=== PATIENT | female | born 1945 | race Caucasian/White ===

== ENCOUNTER → 2017-11-20 11:10 | Outpatient (CLI) | payer MEDICARE, SELFPAY ==
[2017-11-20 12:46] LABS: Absolute Lymphocyte Count 1.61 X10^3/ul (0.83-4.51); Absolute Neutrophil Count 2.9 X10^3/uL (2.0-7.7); Basophil# 0.02 X10^3/uL; Basophil% 0.4 % (0-1); Eosinophil# 0.05 X10^3/uL; Hemoglobin 14.4 g/dl (12.0-15.0); Lymphocyte # 1.61 X10^3/ul (4.0); Lymphocyte % 32.2 % (19-41); Mean Corp Hgb Conc 34.3 g/gl (32-36); Mean Corpuscular Hgb 31.9 pg (27.0-32.0); Mean Corpuscular Volume 92.9 fL (81-99); Mean Platelet Vol. 12.2 fl (6.2-12.0); Neutrophil # 2.92 X10^3/uL (2.7-7.7); Neutrophil % 58.4 % (47-70); Platelet Count 255 K/mm3 (150-450); RBC Distribution Width CV 12.8 % (11.6-14.6); Red Blood Count 4.52 M/mm3 (4.2-5.4)
[2017-11-20 12:51] LABS: POSITIVE COUNT NO; POSITIVE DIFFERENTIAL NO; POSITIVE MORPHOLOGY NO
[2017-11-20 12:59] LABS: Vitamin D,25 Hydroxy 23.1 ng/mL (29.95-100.01)
[2017-11-20 13:12] LABS: ALB/GLOB Ratio 1.1 RATIO (0.9-2.4); AST(SGOT) 30 U/L (15-37); Alanine Aminotransfer ALT/SGPT 39 U/L (13-56); Albumin, Serum 4.7 g/dL (3.2-5.0); Alkaline Phosphatase 79 U/L (45-117); Anion Gap 10 (5-15); BUN 11 mg/dL (7-18); BUN/Creat Ratio 12.5 RATIO (10-20); Calcium,Total 9.4 mg/dL (8.5-10.1); Chloride 100 mmol/L (98-107); Creatinine, Serum 0.88 mg/dL (0.55-1.02); EST Glomerular Filtration Rate 67 mL/min (>60); Est Glom Filt Rate - Afr Amer 81 mL/min (>60); Globulin 4.1 g/dL (2.2-4.2); Glucose 94 mg/dL (74-106); Protein, Total 8.8 g/dL (6.4-8.2); Sodium Level 140 mmol/L (136-145); Thyroid Stim Hormone (TSH) 8.83 uIU/mL (0.358-3.74)
[2017-11-21 08:12] LABS: Hep C Antibodies <0.1 s/co ratio (0.0-0.9)
== END ==
PROVIDERS: Family Provider Family Medicine Geriatric Medicine; PCP Family Medicine Geriatric Medicine; Visit Provider Family Medicine Geriatric Medicine
DX: I10 Essential (primary) hypertension (principal); E55.9 Vitamin D deficiency, unspecified; Z13.89 Encounter for screening for other disorder
CPT/HCPCS: 36415; 80053; 82306; 84443; 85025; 86803

== ENCOUNTER → 2018-01-07 07:05 | Outpatient (CLI) | payer MEDICARE, SELFPAY ==
[2018-01-07 08:24] LABS: Cholesterol 217 mg/dL (200); High Density Lipoprotein 115 mg/dL; T4 Free Direct 0.74 ng/dL (0.76-1.46); Triglycerides 64 mg/dL; Very Low Density Lipoprotein 13 mg/dL (5-40)
== END ==
PROVIDERS: Family Provider Internal Medicine; PCP Internal Medicine; Visit Provider Internal Medicine
DX: E03.9 Hypothyroidism, unspecified (principal)
CPT/HCPCS: 36415; 80061; 84439; 84443

== ENCOUNTER → 2018-01-09 14:16 | Outpatient (CLI) | payer MEDICARE, SELFPAY ==
--- NOTE | 2018-01-09 11:30 | LES_PTH ---
PATIENT: HERMINIA CORTES LOC: [facility] U#:[id number] AGE/SX: 79/F ROOM: RE01/09/[address]: Dr. Alejandro Rivera MD : 1945 BED: DIS: SPEC #: [id number] RECD: 01/09/18 14:01 STATUS: CHANDNI JOHNY #: [id number] AMANDA: 01/09/18 11:[address]: Alejandro Rivera DEPT: SURGICAL PATHOLOGY RECD BY: Ambika Hook ENTERED: 01/09/18 15:04 SP TYPE: Lesion OTHR DR: Dr. Quynh Stewart MD Tissues: Skin of eyelid, NOS Procedures: Surgery Specimen Level IV HEADER OPERATION: Removal of lesion RUL PRE-OP DIAGNOSIS: RUL lesion x8 years, now increasing in size, currently 3 x 2 mm TISSUE SUBMITTED: Lesion RUL MICROSCOPIC DIAGNOSIS Lesion of right upper eyelid, biopsy: Actinic keratosis, hyperkeratotic type, mildly inflamed. AM:fiorella 01/10/18 MICROSCOPIC DESCRIPTION Slides are reviewed. GROSS DESCRIPTION Received in fixative is one container labeled with the patient's name and designated right upper eyelid. The specimen consists of two irregular fragments of jensen tissue that in aggregate measure 0.7 x 0.5 x 0.2 cm. The specimen is totally submitted in one cassette. / AM:fiorella 01/09/18 TC:5 CPT: 17405
== END ==
PROVIDERS: Family Provider Internal Medicine; PCP Internal Medicine; Visit Provider Ophthalmology
DX: L57.0 Actinic keratosis (principal)
CPT/HCPCS: 88305

== ENCOUNTER → 2018-04-10 10:30 | Outpatient (CLI) | payer MEDICARE, SELFPAY ==
[2017-12-20 11:43] VITALS: BMI 21.9
--- NOTE | 2018-04-10 10:32 | RAD_ITS ---
STUDY: X-RAY - RIGHT SHOULDER REASON FOR EXAM: Pain. TECHNIQUE: 3 view(s) of the shoulder. COMPARISON: None. FINDINGS: Normal glenohumeral articulation. 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 Normal acromion. Normal humeral head and visualized proximal humerus. The soft tissue structures are unremarkable. Normal visualized pulmonary apex. RAD/Shoulder min 2 Views IMPRESSION: Mild acromioclavicular arthrosis. Electronically Signed: Thomas Qureshi MD at 12:50 EST Tel , Service support ,
--- OUTSIDE RECORDS SUMMARY | 2018-06-05 12:35 | XMS RPT_ITS ---
:1945 Author Organization OHIP Support Name Relationship Address Phone DAVID CORTES Unavailable [address] + [place] [address] R Unavailable Unavailable Unavailable SEBASTIAN, DAVID Unavailable [address] [place] [address] DR + [place] [address] R Unavailable Unavailable Unavailable SEBASTIAN, DAVID Unavailable [facility] [address] + [place] [address] R Unavailable Unavailable Unavailable SEBASTIAN, DAVID Unavailable [address] [place] [address] + [place] [address] R Unavailable Unavailable Unavailable SEBASTIAN, DAVID Unavailable [facility] [address] + [place] [address] R Unavailable Unavailable Unavailable SEBASTIAN, DAVID Unavailable [facility] [address] + [place] [address] R Unavailable Unavailable Unavailable SEBASTAIN, DAVID Unavailable [facility] [address] + [place] [address] R Unavailable Unavailable Unavailable SEBASTIAN, DAVID Unavailable [facility] [address] + [place] [address] R Unavailable Unavailable Unavailable SEBASTIAN, DAVID Unavailable [facility] [address] + [place] [address] R Unavailable Unavailable Unavailable SEBASTIAN, DAVID Unavailable [address] + [place] [address] R Unavailable Unavailable Unavailable SEBASTIAN, DAVID Unavailable [address] + [place] [address] R Unavailable Unavailable Unavailable SEBASTIAN, DAVID Unavailable [facility] [address] + [place] [address] R Unavailable Unavailable Unavailable Care Team Providers Name Role Phone Joseph Guevara ELECTRIC G[employer] APPLIANCES DEMONSTRATOR-C Attending Unavailable Quynh Stewart Primary Care Unavailable Quynh Stewart Attending Unavailable Quynh Stewart Referring Unavailable Seth Handley Attending Unavailable Oleghe, Efewongbe Referring Unavailable Oleghe, Efewongbe Primary Care Unavailable Yunier, Erwin Chi Attending Unavailable Yunier, Rewin Chi Primary Care Unavailable Oleghe, Efewongbe Attending Unavailable Oleghe, Efewongbe Referring Unavailable Yunier, Erwin Chi Primary Care Unavailable Oleghe, Efewongbe Attending Unavailable Oleghe, Efewongbe Referring Unavailable Oleghe, Efewongbe Primary Care Unavailable Alejandro Rivera Attending Unavailable Oleghe, Efewongbe Primary Care Unavailable Alejandro Rivera Referring Unavailable Wayt, Huy Attending Unavailable Oleghe, Efewongbe Referring Unavailable Wayt, Hyu Attending Unavailable Wayt, Huy Referring Unavailable Oleghe, Efewongbe Primary Care Unavailable Wayt, Huy Attending Unavailable Wayt, Huy Referring Unavailable Oleghe, Efewongbe Primary Care Unavailable Oleghe, Efewongbe Attending Unavailable Oleghe, Efewongbe Referring Unavailable Oleghe, Efewongbe Primary Care Unavailable Oleghe, Efewongbe Attending Unavailable Oleghe, Efewongbe Referring Unavailable PROBLEMS PROBLEMS DATE TYPE CONDITION / CODE ATTENDING STATUS SOURCE 04/10/2018 Unknown M25.511 - Pain in Huy Soriano Active [place] right shoulder / Community M25.511(ICD-10) Hospital Repository 12/20/2017 Unknown E03.9 - Oleghe, Active [place] Hypothyroidism, [facility] unspecified / Hospital E03.9(ICD-10) Repository 12/20/2017 Unknown Z12.31 - Encounter Oleghe, Active [place] for screening [facility] mammogram for Hospital malignant neoplasm Repository of breast / Z12.31(ICD-10) 12/20/2017 Unknown Z78.0 - Oleghe, Active [place] Asymptomatic [facility] menopausal state / Hospital Z78.0(ICD-10) Repository 12/20/2017 Unknown Z12.11 - Encounter Oleghe, Active [place] for screening for [facility] malignant neoplasm Hospital of colon / Repository Z12.11(ICD-10) PROCEDURES PROCEDURES No Procedure Records FoundRESULTS RESULTS INTERNAL MEDICINE Observed: 04/22/2018 Status: F Source: [place] OFFICE VISIT 4:46 PM [facility] [place], [place] REPOSITORY [facility] [address] [place] [address] [place] [address] OFFICE VISIT Date of Service: 04/21/18 MR#: [id number] Acct: [id number] Name: HERMINIA CORTES Rep #: [id number] : 1945 Provider: Quynh Stewart MD Age/Sex: 72/F [place] [facility] Status: Signed Intake Vital Signs04/21/18 Height 5 ft 2 in Intake Visit Reasons: f/u 03/19/18 LM TF Chief Complaint: f/u BP and thyroid Is patient in pain?: No Allergies oxycodone Allergy (Verified 04/10/18 10:22) Unknown Medications blood pressure monitor kit See Dose Instructions .ROUTE .MEDSUPPLY #1 ea 05/14/17 [History Confirmed 07/10/17] amlodipine 5 mg tablet 5 mg PO QDAY #90 tab 12/20/17 [Rx Confirmed 12/20/17] levothyroxine 50 mcg tablet 50 mcg PO QDAY #90 tab 01/07/18 [Rx] Post menopausal: Yes PFSH Medical History Subclinical hypothyroidism (Acute) Hypertension (Chronic) Surgical History History of appendectomy (Acute) Family History Mother Hypertension Social History Smoking Status: Never smoker alcohol intake: current alcohol intake frequency: 0-2 drinks per day Alcohol type: wine substance use type: does not use what type of physical activity do you participate in: yoga frequency: daily HPI HPI Chief Complaint: f/u BP and thyroid Details: HERMINIA CORTES, is a 72yo F who presents to the office today for follow up of her chronic medical condition. She has no acute complaints at this time. Most recent thyroid function study with stable numbers however she states that she only recently increased her levothyroxine about a week ago. Blood pressure also significantly elevated. She states at home her blood pressure typically ranges in the 120s over 80. She also reports compliance with her medication. ROS Const Constitutional: No weight change, body ache, chills, fatigue, sleep problems, fever(s), change in appetite, snoring, weakness, frequent falls, headache(s) or excessive sweating Eyes Eyes: No change in vision, eye pain, light sensitivity or blurry vision ENT ENT: No headache(s), abnormal hearing, ear pain, tinnitus, nasal congestion, sore throat or neck pain Resp Respiratory: No snoring, cough, shortness of breath or wheezing Cardio Cardiology: No excessive sweating, chest pain at rest, chest pain with exertion, shortness of breath, dyspnea on exertion, palpitations, orthopnea or lightheadedness Gastro GI: No abdominal pain, change in bowel habits, constipation, diarrhea, vomiting, nausea/dyspepsia or cramping Genitourinary-Female: No burning urination, painful urination, urinary incontinence, urinary frequency, abnormal vaginal bleeding, pelvic pain or other Musc Musculoskeletal: No neck pain, abnormal walking, joint pain, back pain, limited range of motion, numbness or tingling Skin Skin: No redness, dry skin, itching, lesions, wounds or rash Neuro Neurology: No weakness, frequent falls, headache(s), abnormal hearing, abnormal walking, numbness, tingling, abnormal speech, dizziness or memory loss Psych Psychiatric: No change in appetite, No memory loss, No anxiety, No depression, No Thoughts of harming yourself/Others Endo Endocrine: No fatigue, excessive sweating, cold intolerance, increased thirst/drinking, heat intolerance, flushing or increased hunger Aller/Imm Allergy/Immunologic: No wheezing, itchy eyes, hives or seasonal allergy symptoms Wilbert/Lymp Hematologic/Lymphatic: No easy bleeding, easy bruising or enlarged lymph nodes Exam Const General: cooperative, no acute distress Orientation: alert, awake, oriented x3 [facility] Head: atraumatic, normocephalic, normal to inspection Ears: hearing grossly normal bilaterally Throat: postnasal drainage Other: Impacted cerumen left ear canal. Resp Effort AND Inspection: normal respiratory effort, able to speak in complete sentences Auscultation: Bilateral: Clear to Auscultation Cardio Rate: regular rate Rhythm: regular rhythm Heart Sounds: S1 normal, S2 normal GI Palpation: soft, no hepatosplenomegaly Neuro General: alert, awake, oriented x3, moves all extremities, CN's II-XI intact bilaterally Extrem General: no clubbing, cyanosis or edema Psych Appearance: grossly normal Mental Status: mental status grossly normal Affect: normal affect Assessment AND Plan 1. Hypertension I10 Plan Elevated blood pressure in office. Patient however states that her blood pressure at home is to be in the 120s. Repeat blood pressure done manually by me of 160/90 mmHg. I advised her to keep a blood pressure log and come in with her machine at her next visit. Also instructed to occasionally check her blood pressure at her local pharmacy and compare this with her machine. If her blood pressure is noted to remain elevated she was advised to call the office. Continue lifestyle and dietary modifications. 2. Hypothyroidism E03.9 Plan Thyroid function studies with stable numbers. Adjustments done to her levothyroxine however patient states that she only started taking her new dose about a week ago. No concerns for over or under correction. Continue 50 mcg of levothyroxine daily. Repeat thyroid function studies in 7 weeks. Orders Orders: 3. Impacted cerumen H61.20 Plan More than the left. She denies any problems hearing. OTC Debrox. Reassess at next visit. 4. Healthcare maintenance Z00.00 Plan Mammogram and bone density ordered. Refer to general surgery for screening colonoscopy. Will receive her flu shot at her pharmacy. This note was generated with [employer] dictation software. It may contain incorrect words, spelling, and punctuation that were not noted in checking the note before signing. Plan Detail Other Orders Orders: Referrals: Coding Level of Care Code Off vis,est,level 4 Diagnoses Hypertension I10 Hypothyroidism E03.9 Impacted cerumen H61.20 Healthcare maintenance Z00.00 04/22/18 1646 <Electronically signed by Quynh Stewart MD> Date Quynh Setwart MD Cosigner Signature: Date (if applicable) CC: THYROID STIM HORMONE Collected: 04/16/2018 Status: F Source: [place] (TSH) 6:53 AM [facility] [place], [place] REPOSITORY TYPE CODE TESTS RESULT OUT OF RANGE REFERENCE UNITS LAB L501.9520 0.358-3.74 uIU/mL High TSH 6.23 Performed By: #### L501.9520, L506.0400 #### [facility] [address] [place], [address] T4 FREE DIRECT Collected: 04/16/2018 Status: F Source: [place] 6:53 AM [facility] [place] [place] REPOSITORY TYPE CODE TESTS RESULT OUT OF RANGE REFERENCE UNITS LAB L506.0400 0.76-1.46 ng/dL Normal T4 FREE 0.80 DIRECT Performed By: #### L501.9520, L506.0400 #### [place] [facility] [address] [place], [address] ORTHOPEDIC VISIT Observed: 04/14/2018 Status: F Source: [place] REPORT 9:02 AM [facility] [place] [place] REPOSITORY [facility] [facility] [address] [place] [address] OFFICE VISIT Date of Service: 04/10/18 MR#: [id number] Acct: [id number] Name: HERMINIA CORTES Rep #: [id number] : 1945 Provider: ARY Soriano Age/Sex: 72/F Location: [facility] [place] Status: Signed Intake Intake Visit Reasons: RIGHT SHOULDER Is patient in pain?: Yes Allergies oxycodone Allergy (Verified 04/10/18 10:22) Unknown Medications blood pressure monitor kit See Dose Instructions .ROUTE .MEDSUPPLY #1 ea 05/14/17 [History Confirmed 07/10/17] amlodipine 5 mg tablet 5 mg PO QDAY #90 tab 12/20/17 [Rx Confirmed 12/20/17] levothyroxine 50 mcg tablet 50 mcg PO QDAY #90 tab 01/07/18 [Rx] PFSH Medical History Subclinical hypothyroidism (Acute) Hypertension (Chronic) Surgical History History of appendectomy (Acute) Family History Mother Hypertension Social History Smoking Status: Never smoker alcohol intake: current alcohol intake frequency: 0-2 drinks per day Alcohol type: wine substance use type: does not use what type of physical activity do you participate in: yoga frequency: daily HPI RIGHT SHOULDER: Details: HERMINIA CORTES is a 72 year old F here today for right shoulder pain. Patient notes that she has had right shoulder pain since December. She fell off a sling and jerked her shoulder. Patient has pain over her anterior shoulder. She has good shoulder range of motion although it is painful. She feels like she has muscle weakness. Patient states that she is very active and does yoga. Patient denies any xrays, injections, physical therapy or MRI. ROS Const Reports system reviewed and no additional complaints, except as docu Eyes Reports system reviewed and no additional complaints, except as docu ENT Reports system reviewed and no additional complaints, except as docu Card Reports system reviewed and no additional complaints, except as docu Resp Reports system reviewed and no additional complaints, except as docu GI Reports system reviewed and no additional complaints, except as docu Reports system reviewed and no additional complaints, except as docu Musc Reports joint pain, Reports limited joint movement, Reports muscle weakness Skin/Breast Reports system reviewed and no additional complaints, except as docu Neuro Yes system reviewed and no additional complaints, except as docu Psych Reports system reviewed and no additional complaints, except as docu Endo Reports system reviewed and no additional complaints, except as docu Ortho Exam Right Shoulder Skin/Wound: No ecchymosis Contralateral Normal: Yes Testing: Positive AROM-Forward Elevation 0-180, PROM-Forward Elevation 0-180, Neer's and AROM-External Rotation at side 0-60; negative Hawkin's, Speed's, TTP Biceps, TTP AC Joint, Apprehension Test or Drop Arm Internal Rotation: T12 SHOULDER: Patient has not had any noted abnormalities of the shoulder. She has no localized or generalized swelling of the shoulder. She has normal range of motion audible to the left shoulder today in office. She has some minor impingement signs. She has no evidence of any bicep involvement. Assessment AND Plan Problems 1. Impingement syndrome of right shoulder M75.41 Plan Obtained Xrays of patient's right shoulder. Personally reviewed Xrays. There is no obvious fracture, dislocation, or lucency noted. See chart for further details. Patient does not have any evident abnormalities on examination of the shoulder. There is no localized or generalized swelling or other bony abnormalities. today in the office patient has full range of motion of the right shoulder. She has pretty much full strength on the right side that is comparable to the left. She has some very minor impingement signs on the right side today. We discussed the anatomy and physiology of the shoulder as well as pathophysiology of rotator cuff impingement. We discussed her treatment options at this time which include doing nothing, PT, injection, or further imaging of the shoulder. After discussion patient does not wish to have a injection today at the same time would like to proceed with physical therapy. I did stress that if she continues to have pain during therapy that we can do an injection to help with pain while she goes through therapy. We will follow-up in 4-6 weeks after physical therapy to see how she is doing Orders Orders: Plan Detail Follow Up 6 Weeks Coding Level of Care Code Off vis,new,level 3 Diagnoses Impingement syndrome of right shoulder M75.41 04/14/18 0902 <Electronically signed by Huy BELL> Date Huy BELL Cosigner Signature: Date (if applicable) CC: SHOULDER MIN 2 VIEWS Observed: 04/10/2018 Status: F Source: [place] 10:32 AM [facility] [place] [place] REPOSITORY [facility] Imaging Services [address] [place] [id number] Shoulder min 2 Views MR#: [id number] Acct: [id number] Name: HERMINIA CORTES Rep #: [id number] : 1945 F 72 From: Thomas Qureshi MD PCP: Quynh Stewart MD Status: REG CLI Study: Shoulder min 2 Views Date of Exam: 04/10/18 Exam# [id number] Ordering Dr: Huy Soriano STUDY: X-RAY - RIGHT SHOULDER REASON FOR EXAM: Pain. TECHNIQUE: 3 view(s) of the shoulder. COMPARISON: None. FINDINGS: Normal glenohumeral articulation. 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 Normal acromion. Normal humeral head and visualized proximal humerus. The soft tissue structures are unremarkable. Normal visualized pulmonary apex. RAD/Shoulder min 2 Views IMPRESSION: Mild acromioclavicular arthrosis. Electronically Signed: Thomas Qureshi MD at 12:50 EST Tel , Service support , CC: RAY Soriano; Quynh Stewart MD Research Physiologist: Signed LESION (CHOOSE SITE) Observed: 01/09/2018 Status: F Source: [place] 11:30 AM [facility] [place] [place] REPOSITORY Patient: HERMINIA CORTES : 1945 (/) Acct Num: [id number] [facility] Num: [id number] Loc: LABSPEC Specimen: [id number] Received: 01/09/18 - 1401 Spec Type: Lesion TISSUES TISSUES: Skin of eyelid, NOS GROSS DESCRIPTION Received in fixative is one container labeled with the patient's name and designated right upper eyelid. The specimen consists of two irregular fragments of jensen tissue that in aggregate measure 0.7 x 0.5 x 0.2 cm. The specimen is totally submitted in one cassette. / AM:fiorella 01/09/18 TC:5 CPT: 47343 HEADER OPERATION: Removal of lesion RUL PRE-OP DIAGNOSIS: RUL lesion x8 years, now increasing in size, currently 3 x 2 mm TISSUE SUBMITTED: Lesion RUL MICROSCOPIC DESCRIPTION Slides are reviewed. MICROSCOPIC DIAGNOSIS Lesion of right upper eyelid, biopsy: Actinic keratosis, hyperkeratotic type, mildly inflamed. AM:fiorella 01/10/18 Signed Pastor Annia 01/10/18 <signature on file> Performed By: #### PLES #### [place] [facility] [address] [place], [address] LIPID PROFILE Collected: 01/07/2018 Status: F Source: [place] 7:10 AM [facility] [place] [place] REPOSITORY Order Comment: Comments: Fasting Comments: Fasting TYPE CODE TESTS RESULT OUT OF RANGE REFERENCE UNITS LAB L501.4900 200 mg/dL High CHOL 217 Result Comment: <200 mg/dL Desirable 200-240 mg/dL Borderline >240 mg/dL High Risk LAB L501.5000 mg/dL Normal TRIG 64 Result Comment: The drugs N-Acetylcysteine and Metamizole may falsely depress this assay. Serum Triglycerides Reference Interval Normal <150 mg/dL Borderline high 150 - 199 mg/dL High 200 - 499 mg/dL Very High > or = 500 mg/dL LAB L501.6400 mg/dL Normal HDL 115 Result Comment: The drugs N-Acetylcysteine and Metamizole may falsely depress this assay. Reference Range HDL <40 mg/dL Low HDL Cholesterol HDL >or= 60 mg/dL High HDL Cholesterol LAB L501.6500 0-130 mg/dL Normal LDL 89 LAB L501.6600 5-40 mg/dL Normal VLDL 13 Performed By: #### L500.4100, L501.9520, L506.0400 #### [facility] [address] [place], [place], [id number] THYROID STIM HORMONE Collected: 01/07/2018 Status: F Source: [place] (TSH) 7:10 AM [facility] [place] [place] REPOSITORY Order Comment: Comments: Fasting Comments: Fasting TYPE CODE TESTS RESULT OUT OF RANGE REFERENCE UNITS LAB L501.9520 0.358-3.74 uIU/mL High TSH 6.60 Performed By: #### L500.4100, L501.9520, L506.0400 #### [facility] [address] [place], [place], [address] T4 FREE DIRECT Collected: 01/07/2018 Status: F Source: [place] 7:10 AM [facility] [place] [place] REPOSITORY Order Comment: Comments: Fasting Comments: Fasting TYPE CODE TESTS RESULT OUT OF REFERENCE UNITS RANGE LAB L506.0400 0.76-1.46 ng/dL Low T4 FREE 0.74 DIRECT Performed By: #### L500.4100, L501.9520, L506.0400 #### [facility] [address] [place], [address] INTERNAL MEDICINE Observed: 12/20/2017 Status: F Source: [place] OFFICE VISIT 12:28 PM [facility] [address] [place] [address] OFFICE VISIT Date of Service: 12/20/17 MR#: [id number] Acct: [id number] Name: HERMINIA CORTES Rep #: [id number] : 1945 Provider: Quynh Stewart MD Age/Sex: 72/F Location: [facility] Status: Signed Intake Vital Signs12/20/17 Height 5 ft 2 in Intake Visit Reasons: f/u Chief Complaint: follow-up BP Is patient in pain?: No Allergies oxycodone Allergy (Verified 07/10/17 11:15) Unknown Medications blood pressure monitor kit See Dose Instructions .ROUTE .MEDSUPPLY #1 ea 05/14/17 [History Confirmed 07/10/17] amlodipine 5 mg tablet 5 mg PO QDAY #90 tab 12/20/17 [Rx Confirmed 12/20/17] levothyroxine 25 mcg tablet 25 mcg PO QDAY #90 tab 12/20/17 [Rx Confirmed 12/20/17] Post menopausal: Yes PFSH Medical History Subclinical hypothyroidism (Acute) Hypertension (Chronic) Surgical History History of appendectomy (Acute) Family History Mother Hypertension Social History Smoking Status: Never smoker alcohol intake: current alcohol intake frequency: 0-2 drinks per day Alcohol type: wine substance use type: does not use what type of physical activity do you participate in: yoga frequency: daily HPI HPI Chief Complaint: follow-up BP Details: HERMINIA CORTES, is a 72yo F who presents to the office today for follow-up of her chronic medical conditions. Blood pressure at this time is optimal. She however admits that she went of amlodipine and was noted to have significantly elevated blood pressure. She was seen by another physician and started on another set of medications which per patient she did not tolerate well. She currently is only on amlodipine at the moment. Repeat thyroid function was also noted to be elevated as compared to prior. She was started on levothyroxine. She denies constipation, heat or cold intolerance and easy fatigability. She does admit to compliance with her medications. ROS Const Constitutional: No weight change, body ache, chills, fatigue, sleep problems, fever(s), change in appetite, snoring, weakness, frequent falls, headache(s) or excessive sweating Eyes Eyes: No change in vision, eye pain, light sensitivity or blurry vision ENT ENT: No headache(s), abnormal hearing, ear pain, tinnitus, nasal congestion, sore throat or neck pain Resp Respiratory: No snoring, cough, shortness of breath or wheezing Cardio Cardiology: No excessive sweating, chest pain at rest, chest pain with exertion, shortness of breath, dyspnea on exertion, palpitations, orthopnea or lightheadedness Gastro GI: No abdominal pain, change in bowel habits, constipation, diarrhea, vomiting, nausea/dyspepsia or cramping Genitourinary-Female: No burning urination, painful urination, urinary incontinence, urinary frequency, abnormal vaginal bleeding, pelvic pain or other Musc Musculoskeletal: No neck pain, abnormal walking, joint pain, back pain, limited range of motion, numbness or tingling Skin Skin: No redness, dry skin, itching, lesions, wounds or rash Neuro Neurology: No weakness, frequent falls, headache(s), abnormal hearing, abnormal walking, numbness, tingling, abnormal speech, dizziness or memory loss Psych Psychiatric: No change in appetite, No memory loss, No anxiety, No depression, No Thoughts of harming yourself/Others Endo Endocrine: No fatigue, excessive sweating, cold intolerance, increased thirst/drinking, heat intolerance, flushing or increased hunger Aller/Imm Allergy/Immunologic: No wheezing, itchy eyes, hives or seasonal allergy symptoms Wilbert/Lymp Hematologic/Lymphatic: No easy bleeding, easy bruising or enlarged lymph nodes Exam Const General: cooperative, no acute distress Orientation: alert, awake, oriented x3 [facility] Head: atraumatic, normocephalic, normal to inspection Ears: hearing grossly normal bilaterally Resp Effort AND Inspection: normal respiratory effort, able to speak in complete sentences Auscultation: Bilateral: Clear to Auscultation Cardio Rate: regular rate Rhythm: regular rhythm Heart Sounds: S1 normal, S2 normal GI Palpation: soft, no hepatosplenomegaly Neuro General: alert, awake, oriented x3, moves all extremities, CN's II-XI intact bilaterally Extrem General: no clubbing, cyanosis or edema Psych Appearance: grossly normal Mental Status: mental status grossly normal Affect: normal affect Assessment AND Plan 1. Hypertension I10 Plan Optimally controlled. Continue current medication and lifestyle modification. Follow-up in 3 months. 2. Hypothyroidism E03.9 Plan Currently in Synthroid 25 mcg daily. Repeat thyroid function ordered. Continue current medication for now. Orders Orders: 3. Health care maintenance Z00.00 Plan Bone density, mammogram and referral to general surgery for screening colonoscopy given today. Readdress at next visit. This note was generated with Revionics dictation software. It may contain incorrect words, spelling, and punctuation that were not noted in checking the note before signing. Plan Detail Other Orders Orders: Referrals: Other Medications New: Refilled: Coding Level of Care Code Off vis,est,level 4 Diagnoses Hypertension I10 Hypothyroidism E03.9 Health care maintenance Z00.00 12/20/17 1228 <Electronically signed by Quynh Stewart MD> Date Quynh Stewart MD Cosigner Signature: Date (if applicable) CC: CBC W/DIFF, AUTOMATED Collected: 11/20/2017 Status: F Source: [place] 11:13 AM [facility] [place], [place] REPOSITORY TYPE CODE TESTS RESULT OUT OF RANGE REFERENCE UNITS LAB L100.1000 4.4-11.0 K/mm3 Normal WBC 5.0 LAB L100.1200 4.2-5.4 M/mm3 Normal RBC 4.52 LAB L100.1300 12.0-15.0 g/dl Normal HGB 14.4 LAB L100.1400 37-47 % Normal HCT 42.0 LAB L100.1500 81-99 fL Normal MCV 92.9 LAB L100.1600 27.0-32.0 pg Normal MCH 31.9 LAB L100.1700 32-36 g/gl Normal MCHC 34.3 LAB L100.1810 11.6-14.6 % Normal RDW CV 12.8 LAB L100.1820 35.1-43.9 fl Normal RDW SD 43.0 LAB L100.1900 150-450 K/mm3 Normal PLT 255 LAB L100.2000 6.2-12.0 fl High MPV 12.2 LAB L100.2100 47-70 % Normal NEUT% 58.4 LAB L100.2200 19-41 % Normal LY% 32.2 LAB L100.2300 0-10 % Normal MONO% 8.0 LAB L100.2400 0-5 % Normal EO% 1.0 LAB L100.2500 0-1 % Normal BASO% 0.4 LAB L100.2550 0.0-0.9 % Normal IM GRAN % 0.000 Result Comment: IG% - Immature Granulocytes (promyelocytes, myelocytes and metamyelocytes) > 1% indicates that a LEFT SHIFT is Present. LAB L100.2620 2.0-7.7 X10 3/uL Normal Absolute Neut 2.9 LAB L100.2720 0.83-4.51 X10 3/ul Normal Absolute Lymph 1.61 Performed By: #### L100.0100 #### [facility] [address] [place], [place], [address] VITAMIN D,25 HYDROXY Collected: 11/20/2017 Status: F Source: [place] 11:13 AM [facility] [place], [place] REPOSITORY TYPE CODE TESTS RESULT OUT OF REFERENCE UNITS RANGE LAB L506.1000 29.95-100.01 ng/mL Low Vitamin D 23.1 25-OH Result Comment: Vitamin D 25(OH) Status Range Deficiency <20 ng/mL (50nmol/L) Insuffciency 20 - 30 ng/mL (50 - 75 nmol/L) Sufficiency 30 - 100 ng/mL (75 - 250 nmol/L) Toxicity >100 ng/mL (>250 nmol/L) Performed By: #### L506.1000 #### [facility] [address] [facility] [place], [address] COMPREHENSIVE METABOLIC Collected: 11/20/2017 Status: F Source: [facility] 11:13 AM [facility] [place], [place] REPOSITORY TYPE CODE TESTS RESULT OUT OF RANGE REFERENCE UNITS LAB L501.0100 74-106 mg/dL Normal GLU 94 Result Comment: Please note revised GLUCOSE reference range effective 2017. LAB L501.1000 7-18 mg/dL Normal BUN 11 LAB L501.1100 0.55-1.02 mg/dL Normal CREAT,SERUM 0.88 Result Comment: The validity of the calculated GFR AND GFRAA in patients over 70 years has not been determined. Clinical correlation is essential. LAB L501.1110 >60 mL/min Normal EST GFR 67 Result Comment: Non- GFR Calc LAB L501.1115 >60 mL/min Normal EST GFR - AA 81 Result Comment: GFR Calc LAB L501.1300 10-20 RATIO Normal BUN/CRE 12.5 LAB L501.1500 6.4-8.2 g/dL High T PROT 8.8 LAB L501.1800 3.2-5.0 g/dL Normal ALB 4.7 LAB L501.1950 2.2-4.2 g/dL Normal GLOB 4.1 LAB L501.2000 0.9-2.4 RATIO Normal A/G 1.1 LAB L501.2200 8.5-10.1 mg/dL CA Normal 9.4 LAB L501.4100 15-37 U/L Normal AST 30 LAB L501.4305 45-117 U/L Normal ALK P 79 LAB L501.4405 13-56 U/L Normal ALT 39 LAB L501.4600 0.20-1.00 mg/dL T Normal BILI 0.60 LAB L501.5300 136-145 mmol/L NA Normal 140 LAB L501.5600 3.5-5.1 mmol/L K Normal 4.0 LAB L501.5900 98-107 mmol/L CL Normal 100 LAB L501.6100 21.0-32.0 mmol/L Normal CO2 30.0 LAB L501.6200 5-15 Normal GAP 10 Performed By: #### L500.4050, L501.9520 #### [facility] [address] [place], [place], [id number] THYROID STIM HORMONE Collected: 11/20/2017 Status: F Source: [place] (TSH) 11:13 AM [facility] [place], [place] REPOSITORY TYPE CODE TESTS RESULT OUT OF RANGE REFERENCE UNITS LAB L501.9520 0.358-3.74 uIU/mL High TSH 8.83 Performed By: #### L500.4050, L501.9520 #### [facility] [address] [place], [place], [address] HEPATITIS C ANTIBODIES Collected: 11/20/2017 Status: F Source: [place] 11:13 AM [facility] [place], [place] REPOSITORY TYPE CODE TESTS RESULT OUT OF RANGE REFERENCE UNITS LAB L3100.0650 0.0-0.9 s/co ratio Normal HEP C AB <0.1 Result Comment: Negative: < 0.8 Indeterminate: 0.8 - 0.9 Positive: > 0.9 The CDC recommends that a positive HCV antibody result be followed up with a HCV Nucleic Acid Amplification test (219752). Performed at: - [facility] [id number] Manager Educational: Yefri Alcaraz PhD, Phone: [phone] Performed By: #### L3100.0625 #### [facility] (refer to report for specific site) refer to report for address and phone number URGENT CARE VISIT Observed: 07/10/2017 Status: F Source: [place] REPORT 1:11 PM [facility] [place], [place] REPOSITORY [facility] [address] [place] [address] OFFICE VISIT Date of Service: 07/10/17 MR#: [id number] Acct: [id number] Name: HERMINIA CORTES Rep #: [id number] : 1945 Provider: Seth BELL Age/Sex: 72/F [place] [facility] Status: Signed Intake Vital Signs07/10/17 Height 5 ft 2 in Intake Visit Reasons: OD STYE Chief Complaint: Right upper eyelid erythema and swelling Is patient in pain?: Yes Allergies oxycodone Allergy (Verified 07/10/17 11:15) Unknown Medications blood pressure monitor kit See Dose Instructions .ROUTE .MEDSUPPLY #1 ea 05/14/17 [History Confirmed 07/10/17] amlodipine 5 mg tablet 5 mg PO QDAY #90 tab 05/15/17 [Rx Confirmed 07/10/17] doxycycline hyclate 100 mg capsule 100 mg PO BID 10 Days #20 cap 07/10/17 [Rx Confirmed 07/10/17] PFS Medical History Subclinical hypothyroidism (Acute) Hypertension (Chronic) Surgical History History of appendectomy (Acute) Family History Mother Hypertension Social History Smoking Status: Never smoker alcohol intake: current alcohol intake frequency: 0-2 drinks per day Alcohol type: wine substance use type: does not use what type of physical activity do you participate in: yoga frequency: daily HPI HPI Chief Complaint: Right upper eyelid erythema and swelling Details: HERMINIA CORTES, is a 72 F who presents to the office today for initial evaluation progressively worsening 3 day history of right upper eyelid erythema and swelling. Patient notes she has been using warm compresses to the same in the attempt to alleviate the symptoms unsuccessfully. She notes pain is aggravated to touch alleviated by essentially nothing. She notes no visual acuity changes. She notes no complaints fever, chills, sweats, rash. She notes no associated symptoms no alleviating or aggravating factors. ROS Const Constitutional: No excessive sweating, abnormal sleep pattern, chills, fever(s), night sweats or body ache Eyes Eyes: Positive for other (Right upper eyelid swelling and discomfort); no change in vision, discharge, dry eyes or eye pain ENT ENT: No abnormal hearing, ear pain, ear discharge, ear pressure, hearing loss, post nasal drip or sinus pressure Resp Respiratory: No cough or chest congestion Cardio Cardiology: No excessive sweating, chest pain at rest, chest pain with exertion, shortness of breath, dyspnea on exertion, irregular heart rhythm, generalized swelling or leg pain with exertion Gastro GI: No abdominal pain, change in stool character or change in bowel habits Musc Musculoskeletal: No joint pain, back pain or limited range of motion Skin Skin: No change in hair or sores Neuro Neurology: No abnormal hearing, abnormal speech or abnormal movements Psych Psychiatric: No abnormal sleep pattern Endo Endocrine: No excessive sweating, change in body appearance, cold intolerance or heat intolerance Aller/Imm Allergy/Immunologic: No food intolerance Wilbert/Lymp Hematologic/Lymphatic: No easy bruising Exam Const General: cooperative, healthy appearing, no acute distress, comfortable Nutritional Appearance: average body habitus Orientation: alert, awake, oriented x3 HENMT Head: normal to inspection Ears: hearing grossly normal bilaterally, external ears normal, TM's normal bilaterally, EAC's normal Nose: external nose normal, nares normal, septum normal, no nasal discharge Face and sinus: normal facial exam, sinuses nontender, face symmetric Mouth: tongue normal, lip normal, oropharynx normal, oral mucosae normal Teeth and gingiva: dentition normal, gingiva normal Throat: posterior oropharynx normal, tonsils normal, uvula midline Eyes General: appearance normal, both eyes and all related structures Neck Neck: normal visual inspection, full ROM, no lymphadenopathy, no meningeal signs, supple Neck mass: No Thyroid: thyroid normal Lymphatic: no lymphadenopathy noted Chest Chest palpation AND inspection: normal inspection of the chest Resp Effort AND Inspection: normal respiratory effort, able to speak in complete sentences, symmetric chest movement Auscultation: Bilateral: Clear to Auscultation Cardio Palpation: normal PMI Rate: regular rate Rhythm: regular rhythm Heart Sounds: S1 normal, S2 normal, no gallops, no murmurs, no rubs Pulses: radial pulses present GI Inspection: normal to inspection Palpation: soft, no hepatosplenomegaly Skin General: no rashes or lesions noted Neuro General: alert, awake, oriented x3, gait normal Cognition: normal cognition Speech: speech normal Gait: normal gait Motor: muscle tone normal throughout Sensory Exam: no sensory deficits noted Extrem General: normal to inspection Psych Appearance: grossly normal Mental Status: mental status grossly normal Mood: congruent mood Affect: normal affect Speech and Movement: speech and movement normal Attitude: cooperative Thought Process: normal Thought Content: normal Judgment: judgment good Assessment AND Plan Problems 1. Chalazion H00.19 Plan Doxycycline as prescribed today. Continue warm compresses with baby shampoo as instructed today. Since patient will be leaving out of state, recommend patient follow a local rn cardiac cath where she will be vacationing at her reevaluation within the next 2-5 days, sooner should symptoms worsen or any other concerns develop. Patient states knowledge and understanding all the above. This note was generated with CyberPatrolation software. It may contain incorrect words, spelling, and punctuation that were not noted in checking the note before signing. Medications New: Coding Level of Care Code Off vis,est,level 4 Diagnoses Chalazion H00.19 07/10/17 1311 <Electronically signed by Seth BELL> Date Seth Le Signature: Date (if applicable) CC: INTERNAL MEDICINE Observed: 05/17/2017 Status: F Source: [place] OFFICE VISIT 5:00 PM [facility] [address] [place] [address] OFFICE VISIT Date of Service: 05/15/17 MR#: [id number] Acct: [id number] Name: HERMINIA CORTES Rep #: [id number] : 1945 Provider: Quynh Stewart MD Age/Sex: 71/F Location: [facility] Status: Signed Intake Vital Signs05/15/17 Height 5 ft 2 in 05/15/17 Weight: 125 lb 05/15/17 Body Mass Index (BMI) 22.8 05/15/17 Blood Pressure 160/75 05/15/17 Blood Pressure Location Lt brachial Intake Visit Reasons: F/U Chief Complaint: f/u BP Is patient in pain?: No Allergies No Known Allergies Allergy (Verified 01/14/17 01:58) Medications blood pressure monitor kit See Dose Instructions .ROUTE .MEDSUPPLY #1 ea 05/14/17 [History Confirmed 05/14/17] amlodipine 5 mg tablet 5 mg PO QDAY #90 tab 05/15/17 [Rx Confirmed 05/15/17] PFSH Medical History Subclinical hypothyroidism (Acute) Hypertension (Chronic) Surgical History History of appendectomy (Acute) Family History Mother Hypertension Social History Smoking Status: Never smoker alcohol intake: current alcohol intake frequency: 0-2 drinks per day Alcohol type: wine substance use type: does not use what type of physical activity do you participate in: yoga frequency: daily HPI F/U: Chief Complaint: f/u BP Details: HERMINIA CORTES, is a 71yo F who presents to the office today for follow-up on hypertension. Blood pressure in office today is 160/75mmHg however blood pressure log at home shows very good control with the highest reading of 133 systolic. She has no other concerns regarding her blood pressure today. Repeat thyroid function studies with a TSH of 7 and and free T4 0.72. She denies any symptoms at this time suggestive of hypothyroidism. She denies cold intolerance, chest pain, leg swelling, or easy fatigability. ROS Const Constitutional: No weight change, body ache, chills, fatigue, sleep problems, fever(s), change in appetite, snoring, weakness, frequent falls, headache(s) or excessive sweating Eyes Eyes: No change in vision, eye pain, light sensitivity or blurry vision ENT ENT: No headache(s), abnormal hearing, ear pain, tinnitus, nasal congestion, sore throat or neck pain Resp Respiratory: No snoring, cough, shortness of breath or wheezing Cardio Cardiology: No excessive sweating, chest pain at rest, chest pain with exertion, shortness of breath, dyspnea on exertion, palpitations, orthopnea or lightheadedness Gastro GI: No abdominal pain, change in bowel habits, constipation, diarrhea, vomiting, nausea/dyspepsia or cramping Musc Musculoskeletal: No neck pain, abnormal walking, joint pain, back pain, limited range of motion, numbness or tingling Skin Skin: No redness, dry skin, itching, lesions, wounds or rash Neuro Neurology: No weakness, frequent falls, headache(s), abnormal hearing, abnormal walking, numbness, tingling, abnormal speech, dizziness or memory loss Psych Psychiatric: No change in appetite, No memory loss, No anxiety, No depression, No Thoughts of harming yourself/Others Endo Endocrine: No fatigue, excessive sweating, cold intolerance, increased thirst/drinking, heat intolerance, flushing or increased hunger Aller/Imm Allergy/Immunologic: No wheezing, itchy eyes, hives or seasonal allergy symptoms Wilbert/Lymp Hematologic/Lymphatic: No easy bleeding, easy bruising or enlarged lymph nodes Exam Const General: cooperative, healthy appearing, comfortable, no acute distress Orientation: awake, oriented x3, alert HENMT Ears: hearing grossly normal bilaterally Resp Effort AND Inspection: normal respiratory effort, able to speak in complete sentences Auscultation: Bilateral: Clear to Auscultation Cardio Rate: regular rate Rhythm: regular rhythm Heart Sounds: S1 normal, S2 normal Extrem General: no clubbing, cyanosis or edema Psych Mental Status: mental status grossly normal Affect: normal affect Assessment AND Plan 1. Hypertension I10 Plan Based on home log, good control. Blood pressure in the office is 160/75 mmHg. Possibly white coat syndrome. Continue Norvasc 5 mg daily. Continue lifestyle modification. Follow-up in 3 months. 2. Subclinical hypothyroidism E03.9 Plan No significant difference in thyroid function studies however mildly low free T4. No symptoms suggestive of significant hypothyroidism. Continue to monitor. Follow-up in 2 months with repeat thyroid function studies. This note was generated with CyberPatrolation software. It may contain incorrect words, spelling, and punctuation that were not noted in checking the note before signing. Plan is [employer] slow problems in his knee is stopped no Orders Orders: Plan Detail Other Medications New: Follow Up 2 Months Coding Level of Care Code Off vis,est,level 3 Diagnoses Hypertension I10 Subclinical hypothyroidism E03.9 05/17/17 1700 <Electronically signed by Quynh Stewart MD> Date Quynh Stewart MD Cosigner Signature: Date (if applicable) CC: THYROID STIM HORMONE Collected: 05/01/2017 Status: F Source: [place] (TSH) 7:46 AM [facility] [place], [place] REPOSITORY Order Comment: Order Date: 01/23/17 Order Info: [id number] - *TSH Comments: Reason: Order Info: [id number] - *T4 free Comments: Reason: TYPE CODE TESTS RESULT OUT OF RANGE REFERENCE UNITS LAB L501.9520 0.358-3.74 uIU/mL High TSH 7.15 Performed By: #### L501.9520 #### [place] [facility] [address] [place], [address] T4 FREE DIRECT Collected: 05/01/2017 Status: F Source: [place] 7:46 AM [facility] [place] [place] REPOSITORY Order Comment: Order Date: 01/23/17 Order Info: [id number] - *TSH Comments: Reason: Order Info: [id number] - *T4 free Comments: Reason: TYPE CODE TESTS RESULT OUT OF REFERENCE UNITS RANGE LAB L506.0400 0.76-1.46 ng/dL Low T4 FREE 0.72 DIRECT Performed By: #### L506.0400 #### [facility] [address] [place], [address] ALLERGIES ALLERGIES DATE TYPE / CODE NAME / CODE REACTION SEVERITY SOURCE 04/10/2018 Drug oxycodone/F00 Unknown Unknown [facility] Allergy/4160 [id number]([facility] 65088(SNOMED M) Repository CT) 01/14/[address] [facility] Allergy/4160 Allergies/F00 [facility] 96540(SNOMED 1033615(RXNOR Repository CT) M) ENCOUNTERS ENCOUNTERS ADMIT/DISCHARGE ACCOUNT ADMITTING ENCOUNTER LOCATION SOURCE NUMBER CLASS 04/21/2018/ [id number] Ambulatory BMSBuilding:B [place] [address] [place] Repository 04/16/2018 [id number] Ambulatory [place] 5 [facility] ing:LAB Repository 04/14/2018 [id number] Ambulatory [place] 2 [facility] ing:PT Repository 04/10/2018 [id number] Ambulatory [place] 8 [facility] ing:HPRAD Repository 04/10/2018/ [id number] Ambulatory BMSBuilding:B [place] [address] 7 [place].SMO [facility] Repository 01/09/2018 [id number] Ambulatory [place] 3 [facility] ing:LABSPEC Repository 01/07/2018 [id number] Ambulatory [place] 3 [facility] ing:LAB Repository 12/20/2017/ [id number] Ambulatory BMSBuilding:B [place] 8 0 [place].BIM [facility] Repository 11/20/2017 [id number] Ambulatory [place] 4 [facility] ing:POLAB3 Repository 07/10/2017/ [id number] Ambulatory BMSBuilding:B [place] 8 6 [place].NOW [facility] Repository 05/15/2017/ [id number] Ambulatory BMSBuilding:B [place] 8 5 [place].BIM [facility] Repository 05/01/2017 [id number] Ambulatory [place] 6 [facility] ing:LAB.FUTUR Repository E PAYERS PAYERS ENCOUNTER GUARANTOR PAYER SUBSCRIBER SOURCE 04/21/2018 BRIDGET Lu Primary [place] Lu [place] [id number] Insurance:SUMMA CARE MARIOLADOB: Community FOREST MEDICAREPolicy [id number] Number: Repository [address]Heq: 330 [id number] [phone] (HP) Date:6104-62-92ZI [address] [place] [address]ZF: 04/21/2018 Secondary NOT GIVENUNK [place] Insurance:SELF PAY [facility] Number: Effective Repository Date:2018-03-19 04/16/2018 BRIDGET Lu [place] [id number] Insurance:SUMMA CARE MARIOLADOB: Community FOREST MEDICAREPolicy [id number], [place] Number: Repository [address]Vxh: (330 [id number] [phone] (HP) Date:4187-87-02KT [address] [place] [address]AX: 04/16/2018 Secondary NOT GIVENUNK [place] Insurance:SELF PAY [facility] Number: Effective Repository Date:2018-04-16 04/14/2018 BRIDGET Lu [place] [id number] Insurance:SUMMA CARE MARIOLADOB: Community FOREST MEDICAREPolicy [id number], [place] Number: Repository [address]Vaf: 330 [id number] [phone] (HP) Date:4561-19-95YP [address], [place] [address]YD: 04/14/2018 Secondary NOT GIVENUNK [place] Insurance:SELF PAY [facility] Number: Effective Repository Date:2018-04-10 04/10/2018 BRIDGET Lu [place] [id number] Insurance:SUMMA CARE MARIOLADOB: Community FOREST MEDICAREPolicy [id number], [place] Number: Repository [address]Gem: 330 [id number] [phone] (HP) Date:5813-22-32RY [address] [place] [address]I: 04/10/2018 Secondary NOT GIVENUNK [place] Insurance:SELF PAY [facility] Hospital Number: Effective Repository Date:2018-04-10 04/10/2018 BRIDGET Lu [place] [id number] Insurance:SUMMA CARE MARIOLADOB: Community FOREST MEDICAREPolicy [id number], [place] Number: Repository [address]Yno: 330 [id number] [phone] (HP) Date:2257-98-74VX [address] [place] [address]RS: 04/10/2018 Secondary NOT GIVENUNK [place] Insurance:SELF PAY [facility] Number: Effective Repository Date:2018-04-10 01/09/2018 BRIDGET Lu [place] [id number] Insurance:SUMMA CARE MARIOLADOB: Community FOREST MEDICAREPolicy [id number], [place] Number: Repository [address]Nqr: 330 [id number] [phone] (HP) Date:8927-43-30FJ [address], [place] [address]ZI: 01/09/2018 Secondary NOT GIVENUNK [place] Insurance:SELF PAY [facility] Hospital Number: Effective Repository Date:2018-01-09 01/07/2018 BRIDGET Quinonezoster [id number] Insurance:SUMMA CARE MARIOLADOB: Community FOREST MEDICAREPolicy [id number], [place] Number: Repository [address]Ypn: 330 [id number] [phone] (HP) Date:1050-19-25PI [address] [address]TI: 01/07/2018 Secondary NOT GIVENUNK [place] Insurance:SELF PAY [facility] Number: Effective Repository Date:2018-01-07 12/20/2017 BRIDGET Lu Primary [place] [id number] Insurance:SUMMA CARE MARIOLADOB: Community FOREST MEDICAREPolicy [id number], [place] Number: Repository [address]Fkm: 330 [id number] [phone] (HP) Date:9954-36-78IY [address], [place] [address]CE: 12/20/2017 Secondary NOT GIVENUNK [place] Insurance:SELF PAY [facility] Number: Effective Repository Date:2017-11-29 11/20/2017 BRIDGET Lu [facility] [place] Quinonezoster [id number] Insurance:SUMMA CARE MARIOLADOB: Community FOREST MEDICAREPolicy [id number], [place] Number: Repository [address]Hsq: 330 [id number] [phone] () Date:8180-74-95IH [address], [place] [address]QH: 11/20/2017 Secondary NOT GIVENUNK [place] Insurance:SELF PAY [facility] Number: Effective Repository Date:2017-11-20 07/10/2017 BRIDGET Lu Primary [place] Quinonezoster [id number] Insurance:SUMMA CARE MARIOLADOB: Community FOREST MEDICAREPolicy [id number], [place] Number: Repository [address]Vap: 330 [id number] [phone] (HP) Date:2840-91-21SB [address] [place] [address]UR: 07/10/2017 Secondary NOT GIVENUNK [place] Insurance:SELF PAY [facility] Number: Effective Repository Date:2017-07-10 05/15/2017 BRIDGET Lu Primary [place] Quinonezoster [id number] Insurance:SUMMA CARE MARIOLADOB: Community FOREST MEDICAREPolicy [id number], [place] Number: Repository [id number]: 330 [id number] [phone] () Date:4614-15-73SC [address] [place] [address]QE: 05/15/2017 Secondary NOT GIVENUNK [place] Insurance:SELF PAY [facility] Number: Effective Repository Date:2017-05-08 05/01/2017 [id number] Insurance:SUMMA CARE MARICOVINGTONDOB: Community [place] MEDIC[id number] Number: Repository [address]Hvv: 330 [id number] [phone] () Date:4252-36-38GM [address], [place] [address]QN: 05/01/2017 Secondary NOT GIVENUNK [place] Insurance:SELF PAY [facility] Number: Effective Repository Date:2017-01-24
== END ==
PROVIDERS: Family Provider Internal Medicine; PCP Internal Medicine; Referring Provider Physician Assistant; Visit Provider Physician Assistant
DX: M25.511 Pain in right shoulder (principal)
CPT/HCPCS: 73030

== ENCOUNTER 2018-04-14 13:58 | Outpatient (RCR) | payer MEDICARE, SELFPAY | END 2018-04-14 19:00 | disposition home or self-care (01) | LOC: PT 13:58 | PROVIDERS: Family Provider Internal Medicine; PCP Internal Medicine; Referring Provider Physician Assistant; Visit Provider Physician Assistant | DX: M75.101 Unspecified rotator cuff tear or rupture of right shoulder, not specified as traumatic (principal); M75.21 Bicipital tendinitis, right shoulder ==

== ENCOUNTER → 2018-04-16 06:47 | Outpatient (CLI) | payer MEDICARE, SELFPAY ==
[2017-12-20 11:43] VITALS: BMI 21.9
[2018-04-16 08:06] LABS: Thyroid Stim Hormone (TSH) 6.23 uIU/mL (0.358-3.74)
== END ==
PROVIDERS: Family Provider Internal Medicine; PCP Internal Medicine; Referring Provider Internal Medicine; Visit Provider Internal Medicine
DX: E03.9 Hypothyroidism, unspecified (principal)
CPT/HCPCS: 36415; 84439; 84443

== ENCOUNTER → 2018-05-23 07:36 | Outpatient (CLI) | payer MEDICARE, SELFPAY ==
[2018-04-21 14:24] VITALS: BMI 23.0
[2018-05-23 08:50] LABS: T4 Free Direct 0.85 ng/dL (0.76-1.46); Thyroid Stim Hormone (TSH) 3.58 uIU/mL (0.358-3.74)
== END ==
PROVIDERS: Family Provider Internal Medicine; PCP Internal Medicine; Referring Provider Internal Medicine; Visit Provider Internal Medicine
DX: E03.9 Hypothyroidism, unspecified (principal)
CPT/HCPCS: 36415; 84439; 84443

== ENCOUNTER → 2018-11-07 06:06 | Outpatient (CLI) | payer MEDICARE, SELFPAY ==
[2018-10-14 13:50] VITALS: BMI 23.0
[2018-11-07 07:23] LABS: Absolute Neutrophil Count 1.4 X10^3/uL (2.0-7.7); Basophil# 0.02 X10^3/uL; Basophil% 0.5 % (0-1); Eosinophil# 0.15 X10^3/uL; Eosinophils% 3.7 % (0-5); Hematocrit 38.2 % (37-47); Hemoglobin 12.9 g/dl (12.0-15.0); Lymphocyte % 49.6 % (19-41); Mean Corp Hgb Conc 33.8 g/gl (32-36); Mean Corpuscular Hgb 30.9 pg (27.0-32.0); Mean Corpuscular Volume 91.6 fL (81-99); Mean Platelet Vol. 11.7 fl (6.2-12.0); Monocyte# 0.48 X10^3/uL; Monocyte% 11.9 % (0-10); Neutrophil # 1.38 X10^3/uL (2.7-7.7); Neutrophil % 34.3 % (47-70); Platelet Count 230 K/mm3 (150-450); RBC Distribution Width CV 13.6 % (11.6-14.6); RBC Distribution Width SD 45.2 fl (35.1-43.9); Red Blood Count 4.17 M/mm3 (4.2-5.4)
[2018-11-07 07:24] LABS: POSITIVE COUNT NO; POSITIVE DIFFERENTIAL NO; POSITIVE MORPHOLOGY NO
[2018-11-07 07:52] LABS: Anion Gap 6 (5-15); BUN 14 mg/dL (7-18); BUN/Creat Ratio 16.8 RATIO (10-20); Calcium,Total 8.8 mg/dL (8.5-10.1); Chloride 106 mmol/L (98-107); Creatinine, Serum 0.83 mg/dL (0.55-1.02); EST Glomerular Filtration Rate 71 mL/min (>60); Est Glom Filt Rate - Afr Amer 86 mL/min (>60); Glucose 86 mg/dL (74-106); Potassium 4.2 mmol/L (3.5-5.1); Sodium Level 142 mmol/L (136-145); Thyroid Stim Hormone (TSH) 1.03 uIU/mL (0.358-3.74)
== END ==
PROVIDERS: Family Provider Internal Medicine; PCP Internal Medicine; Referring Provider Internal Medicine; Visit Provider Internal Medicine
DX: E03.9 Hypothyroidism, unspecified (principal); I10 Essential (primary) hypertension
CPT/HCPCS: 36415; 80048; 84443; 85025

== ENCOUNTER → 2018-12-09 12:25 | Outpatient (CLI) | payer MEDICARE, SELFPAY ==
[2018-10-14 13:50] VITALS: BMI 23.0
--- NOTE | 2018-12-09 12:27 | BI_ITS ---
MAMMOGRAPHY - BILATERAL SCREENING REASON FOR EXAM: Female, 73 years old. Routine annual screening examination. PERTINENT HISTORY: Sister with breast cancer. TECHNIQUE: Digital bilateral breast saman (3D mammographic acquisition) in the CC and MLO projections. 2-D mediolateral oblique (MLO) and craniocaudad (CC) views of both breasts were obtained. CAD: Full Field Digital Mammography with Computer Added Detection was performed. COMPARISON: Comparison is made with prior abdomen examination dated August 23, 2008. FINDINGS: Breast Composition: The breasts are heterogeneously dense, which may obscure small masses. There are no dominant masses or suspicious calcifications. No other significant abnormalities are identified. BI/SCREENING MAMM (CAD), BILAT IMPRESSION: Stable bilateral screening mammogram. Yearly follow-up mammogram recommended. (A) ASSESSMENT CATEGORY: BIRADS Category 1: Negative. A letter regarding these results will be sent to the patient by the facility within 30 days. Approximately 10% of breast cancers are not detected by mammography. A normal mammogram should not delay biopsy of a clinically suspicious abnormality. [id number] Electronically Signed: Logan Eaton, at 10:30 EDT , Service support ,
--- NOTE | 2018-12-09 12:29 | BD_ITS ---
STUDY: DUAL ENERGY X-RAY ABSORPTIOMETRY / DXA REASON FOR EXAM: Female, 73 years old. The patient is postmenopausal. Loss of height. TECHNIQUE: Bone Mineral Density (BMD) measurements of lumbar spine and bilateral hips were obtained. COMPARISON: None. FINDINGS: Lumbar Spine (L1-L4): g/cm2 (0.868) / T-score (-2.5) / Z-score (-0.8) Findings are suggestive of osteopenia with a high fracture risk. Left Femur Total: g/cm2 (0.897) / T-score (-0.9) / Z-score (0.8) Left Femoral Neck: g/cm2 (0.917) / T-score (-0.9) / Z-score (1.0) Right Femur Total: g/cm2 (0.881) / T-score (-1.0) / Z-score (0.7) Right Femoral Neck: g/cm2 (0.868) / T-score (-1.2) / Z-score (0.7) BD/Dexa Bone Density Study IMPRESSION: The patient is considered osteopenic as outlined below according to World Richy Organization (WHO) criteria with a high fracture risk. Reference Information: The T-score is the number of standard deviations above or below the standard which is normal for young adults at their peak bone mineral density. The World Health Organization (WHO) interprets the T-scores as follows: Above -1 Normal bone density Between -1 and -2.5 Osteopenia Equal to / or below -2.5 Osteoporosis As a practical clinical guideline, osteopenia may be graded as follows: Mild -1 through -1.5 Moderate -1.6 through -2.0 Severe -2.1 through -2.4 The Z-score is the number of standard deviations above or below age-matched controls. A Z-score of less than -1.5 would be considered abnormal. References: 1. NIH Osteoporosis and Related Bone Diseases http://www.osteo.org 2. International Society for Clinical Densitometry http://www.iscd.org 3. National Osteoporosis Foundation http://www.nof.org Electronically Signed: Logan Eaton, at 15:17 EDT , Service support ,
== END ==
PROVIDERS: Family Provider Internal Medicine; PCP Internal Medicine; Referring Provider Internal Medicine; Visit Provider Internal Medicine
DX: Z78.0 Asymptomatic menopausal state (principal); Z12.31 Encounter for screening mammogram for malignant neoplasm of breast
CPT/HCPCS: 77067; 77080

== ENCOUNTER → 2019-06-16 07:04 | Outpatient (CLI) | payer MEDICARE, SELFPAY ==
[2018-10-14 13:50] VITALS: BMI 23.0
[2019-06-16 08:27] LABS: Thyroid Stim Hormone (TSH) 6.75 uIU/mL (0.358-3.74)
== END ==
PROVIDERS: PCP Family Medicine; Referring Provider Family Medicine; Visit Provider Family Medicine
DX: E03.9 Hypothyroidism, unspecified (principal)
CPT/HCPCS: 84443

== ENCOUNTER → 2019-11-19 10:53 | Outpatient (CLI) | payer MEDICARE, SELFPAY ==
[2018-10-14 13:50] VITALS: BMI 23.0
[2019-11-19 14:03] LABS: Thyroid Stim Hormone (TSH) 6.21 uIU/mL (0.358-3.74)
== END ==
PROVIDERS: PCP Family Medicine; Referring Provider Family Medicine; Visit Provider Family Medicine
DX: E03.9 Hypothyroidism, unspecified (principal)
CPT/HCPCS: 36415; 84443

== ENCOUNTER → 2020-05-09 07:14 | Outpatient (CLI) | payer MEDICARE, SELFPAY ==
[2018-10-14 13:50] VITALS: BMI 23.0
[2020-05-09 08:51] LABS: ALB/GLOB Ratio 1.1 RATIO (0.9-2.4); AST(SGOT) 30 U/L (15-37); Alanine Aminotransfer ALT/SGPT 34 U/L (13-56); Albumin, Serum 3.8 g/dL (3.2-5.0); Alkaline Phosphatase 90 U/L (45-117); Anion Gap 4 (5-15); BUN 13 mg/dL (7-18); Calcium,Total 8.9 mg/dL (8.5-10.1); Chloride 104 mmol/L (98-107); Cholesterol 209 mg/dL (200); Creatinine, Serum 0.81 mg/dL (0.55-1.02); EST Glomerular Filtration Rate 73 mL/min (>60); Est Glom Filt Rate - Afr Amer 88 mL/min (>60); Globulin 3.5 g/dL (2.2-4.2); Glucose 83 mg/dL (74-106); High Density Lipoprotein 122 mg/dL; Potassium 4.1 mmol/L (3.5-5.1); Protein, Total 7.3 g/dL (6.4-8.2); Sodium Level 139 mmol/L (136-145); Thyroid Stim Hormone (TSH) 7.53 uIU/mL (0.358-3.74); Triglycerides 43 mg/dL; Very Low Density Lipoprotein 9 mg/dL (5-40)
== END ==
LOC: LAB 07:15
PROVIDERS: PCP Family Medicine; Referring Provider Family Medicine; Visit Provider Family Medicine
DX: I10 Essential (primary) hypertension (principal); E03.9 Hypothyroidism, unspecified
CPT/HCPCS: 36415; 80053; 80061; 84443

== ENCOUNTER → 2020-10-24 14:31 | Outpatient (CLI) | payer MEDICARE, SELFPAY ==
[2018-10-14 13:50] VITALS: BMI 23.0
[2020-10-24 18:21] LABS: Thyroid Stim Hormone (TSH) 5.15 uIU/mL (0.358-3.74)
== END ==
PROVIDERS: PCP Family Medicine; Visit Provider Family Medicine
DX: E03.9 Hypothyroidism, unspecified (principal)
CPT/HCPCS: 36415; 84443

== ENCOUNTER → 2021-05-08 07:00 | Outpatient (CLI) | payer MEDICARE, SELFPAY ==
[2021-05-08 08:11] LABS: Anion Gap 5 (5-15); BUN 12 mg/dL (7-18); BUN/Creat Ratio 14.5 RATIO (10-20); Chloride 102 mmol/L (98-107); Cholesterol 207 mg/dL (200); Creatinine, Serum 0.83 mg/dL (0.55-1.02); EST Glomerular Filtration Rate 71 mL/min (>60); Est Glom Filt Rate - Afr Amer 86 mL/min (>60); Free T3 2.1 pg/mL (2.18-3.98); Glucose 97 mg/dL (74-106); High Density Lipoprotein 125 mg/dL; Potassium 3.7 mmol/L (3.5-5.1); Sodium Level 138 mmol/L (136-145); T4 Free Direct 0.81 ng/dL (0.76-1.46); Triglycerides 61 mg/dL; Very Low Density Lipoprotein 12 mg/dL (5-40)
== END ==
PROVIDERS: PCP Family Medicine; Referring Provider Family Medicine; Visit Provider Family Medicine
DX: I10 Essential (primary) hypertension (principal); E03.9 Hypothyroidism, unspecified
CPT/HCPCS: 36415; 80048; 80061; 84439; 84443; 84481

== ENCOUNTER 2021-08-14 10:39 | Outpatient (CLI) | payer MEDICARE, SELFPAY ==
[2021-08-14 12:32] LABS: Thyroid Stim Hormone (TSH) 0.99 uIU/mL (0.358-3.74)
== END 2021-08-14 23:59 | disposition home or self-care (01) ==
PROVIDERS: PCP Family Medicine; Visit Provider Family Medicine
DX: E03.9 Hypothyroidism, unspecified (principal)
CPT/HCPCS: 36415; 84443

== ENCOUNTER → 2021-09-18 | Outpatient (CLI) | payer MEDICARE, SELFPAY ==
--- NOTE | 2021-09-18 14:06 | BI_ITS ---
MAMMOGRAPHY - BILATERAL SCREENING REASON FOR EXAM: Female, 76 years old. Routine annual screening examination. PERTINENT HISTORY: Sister with breast cancer. TECHNIQUE: Digital bilateral breast yusuf (3D mammographic acquisition) in the CC and MLO projections. 2-D mediolateral oblique (MLO) and craniocaudad (CC) views of both breasts were obtained. CAD: Full Field Digital Mammography with Computer Added Detection was performed. COMPARISON: Comparison is made with prior study dated 12/09/2018. FINDINGS: Breast Composition: The breasts are heterogeneously dense, which may obscure small masses. There are no dominant masses or suspicious calcifications. No other significant abnormalities are identified. There has been no significant change since the prior study. BI/SCRN MAMM (CAD)W/YUSUF BILAT IMPRESSION: Stable bilateral screening mammogram. Yearly follow-up mammogram recommended. (A) ASSESSMENT CATEGORY: BIRADS Category 1: Negative. A letter regarding these results will be sent to the patient by the facility within 30 days. Approximately 10% of breast cancers are not detected by mammography. A normal mammogram should not delay biopsy of a clinically suspicious abnormality. [id number] Electronically Signed: Logan Eaton MD at 15:25 EDT ,
== END | disposition home or self-care (01) ==
LOC: OPBI 14:04
PROVIDERS: PCP Family Medicine; Visit Provider Family Medicine
DX: Z12.31 Encounter for screening mammogram for malignant neoplasm of breast (principal); Z80.3 Family history of malignant neoplasm of breast
CPT/HCPCS: 77063; 77067

== ENCOUNTER → 2022-05-29 | Outpatient (CLI) | payer MEDICARE, SELFPAY ==
[2022-05-29 08:05] LABS: Microalbumin,Random Urine < 5.0 mg/L (NO RANGE EST.)
[2022-05-29 08:16] LABS: ALB/GLOB Ratio 1.1 RATIO (0.9-2.4); AST(SGOT) 18 U/L (15-37); Alanine Aminotransfer ALT/SGPT 23 U/L (13-56); Albumin, Serum 3.7 g/dL (3.2-5.0); Alkaline Phosphatase 80 U/L (45-117); Anion Gap 5 (5-15); BUN 12 mg/dL (7-18); BUN/Creat Ratio 14.9 RATIO (10-20); Calcium,Total 8.9 mg/dL (8.5-10.1); Chloride 103 mmol/L (98-107); Cholesterol 217 mg/dL (200); Creatinine, Serum 0.81 mg/dL (0.55-1.02); EST Glomerular Filtration Rate 73 mL/min (>60); Est Glom Filt Rate - Afr Amer 89 mL/min (>60); Globulin 3.5 g/dL (2.2-4.2); Glucose 92 mg/dL (74-106); High Density Lipoprotein 127 mg/dL; Potassium 4.3 mmol/L (3.5-5.1); Protein, Total 7.2 g/dL (6.4-8.2); Sodium Level 138 mmol/L (136-145); Thyroid Stim Hormone (TSH) 3.24 uIU/mL (0.358-3.74); Triglycerides 53 mg/dL; Very Low Density Lipoprotein 11 mg/dL (5-40)
== END | disposition home or self-care (01) ==
LOC: LAB 07:03
PROVIDERS: PCP Family Medicine; Referring Provider Family Medicine; Visit Provider Family Medicine
DX: Z13.220 Encounter for screening for lipoid disorders (principal); I10 Essential (primary) hypertension; E03.9 Hypothyroidism, unspecified
CPT/HCPCS: 36415; 80053; 80061; 82043; 84443

== ENCOUNTER → 2022-08-16 | Outpatient (CLI) | payer MEDICARE, SELFPAY ==
[2022-08-16 16:04] LABS: T4 Free Direct 0.93 ng/dL (0.76-1.46); Thyroid Stim Hormone (TSH) 1.78 uIU/mL (0.358-3.74)
== END | disposition home or self-care (01) ==
LOC: MFPLAB 11:13
PROVIDERS: PCP Family Medicine; Referring Provider Family Medicine; Visit Provider Family Medicine
DX: E03.9 Hypothyroidism, unspecified (principal)
CPT/HCPCS: 36415; 84439; 84443

== ENCOUNTER → 2023-06-05 | Outpatient (CLI) | payer MEDICARE, SELFPAY ==
--- OUTSIDE RECORDS SUMMARY | 2023-06-05 07:02 | XMS RPT_ITS | CCD ---
Author Name Unknown Address [facility] [place] [id number] Organization [facility] Care Team Providers Care Miner Operator Name Role Phone Terry MARTINEZ, Quynh Junior Unavailable Joseph Walker Unavailable Unavailable Yvonne Nicole Unavailable Unavailable Wendi Bernal Unavailable Unavailable Tatyana Peterson Unavailable Unavailable Primary Care Provider Unavailabl e Allergies Allergy Classification Reported Allergen(s) Allergy Type Date of Onset Reaction(s) Facility (2 sources) oxyCODONE drug allergy 7 [facility] Work Phone: (1 source) oxyCODONE Drug Allergy 7 Other: See Comments [facility] Medications Current Medications Medication Drug Class(es) Dates Sig (Normalized) Sig (Original) valACYclovir 1000 mg oral tablet (1 source) Herpesvirus Nucleoside Analog DNA Polymerase Inhibitor, Herpes Simplex Virus Nucleoside Analog DNA Polymerase Inhibitor, Herpes Zoster Virus Nucleoside Analog DNA Polymerase Inhibitor Start: 07-28-2022 End: 08-04-2022 take 1 tablet by mouth three times daily valACYclovir (VALTREX) 1 gram Take 1 tablet by mouth three times daily for 7 days. 21 tablet 0 07/28/2022 08/04/2022 Active Completed/Discontinued Medications Medication Drug Class(es) Dates Sig (Normalized) Sig (Original) amLODIPine 5 mg oral tablet (8 sources) Dihydropyridine Calcium Channel Praveen Start: 04-28-2021 amLODIPine (NORVASC) 5 mg tablet Problems Active Problems Problem Classification Problem Date Documented Da te Episodic/Chronic Essential hypertension (9 sources) Hypertensive disorder; Translations: [Essential (primary) hypertension] 01-16-2017 Chronic Thyroid disorders (5 sources) Subclinical hypothyroidism; Translations: [Hypothyroidism, unspecified] Onset: 01-23-2017 01-23-2017 Chronic Unclassified (1 source) Procedure carried out on subject; Translations: [Encounter for screening for lipoid disorders] Onset: 01-21-2017 01-21-2017 Viral infection (1 source) Herpes zoster without complication; Translations: [Zoster without complications] Episodic Past or Other Problems Problem Classification Problem Date Documented Da te Episodic/Chronic Other screening for suspected conditions (not mental disorders or infectious disease) (13 sources) Encounter for screening for diabetes mellitus; Translations: [Encounter for screening for lipoid disorders] Onset: 01-21-2017 01-21-2017 Episodic Results Test Name Value Interpretation Reference Range Facil ity Vital Signs Date Time Vital Sign Value Performing Clinician Facility 07-28-2022 12:03-0400 Body temperature 97.59 [degF] Heydi Athy PA-C Work Phone: [facility] 07-28-2022 12:03-0400 Body weight 56.79 kg Heydi Athy PA-C Work Phone: [facility] 07-28-2022 12:03-0400 Diastolic blood pressure 68 mm[Hg] Heydi Athy PA-C Work Phone: [facility] 07-28-2022 12:03-0400 Heart rate 68 /min Heydi Athy PA-C Work Phone: [facility] 07-28-2022 12:03-0400 Respiratory rate 18 /min Heydi Athy PA-C Work Phone: [facility] 07-28-2022 12:03-0400 SaO2% (BldA) [Mass fraction] 97 % Heydi Athy PA-C Work Phone: [facility] 07-28-2022 12:03-0400 Systolic blood pressure 140 mm[Hg] Heydi Athy PA-C Work Phone: [facility] 02-04-2017 07:49-0400 BMI (Body Mass Index) 22.06 kg/m2 Quynh Stewart MD [facility] Work Phone: 02-04-2017 07:49-0400 Body Temperature 97.7 [degF] Quynh Stewart MD [facility] Work Phone: 02-04-2017 07:49-0400 BP Diastolic 84 mm[Hg] Quynh Stewart MD [facility] Work Phone: 02-04-2017 07:49-0400 BP Systolic 154 mm[Hg] Quynh Stewart MD [facility] Work Phone: 02-04-2017 07:49-0400 Height 157.48 cm Quynh Stewart MD [facility] Work Phone: 02-04-2017 07:49-0400 Pulse (Heart Rate) 52 /min Quynh [facility] Work Phone: 02-04-2017 07:49-0400 Respiratory Rate 16 /min Quynh Stewart MD [facility] Work Phone: 02-04-2017 07:49-0400 Weight 54.7 kg Quynh Stewart MD [facility] Work Phone: 01-21-2017 09:53-0400 BMI (Body Mass Index) 22.53 kg/m2 Quynh Stewart MD [facility] Work Phone: 01-21-2017 09:53-0400 Body Temperature 98 [degF] Quynh Stewart MD [facility] Work Phone: 01-21-2017 09:53-0400 BP Diastolic 90 mm[Hg] Quynh Stewart MD [facility] Work Phone: 01-21-2017 09:53-0400 BP Systolic 180 mm[Hg] Quynh Stewart MD [facility] Work Phone: 01-21-2017 09:53-0400 Height 157.48 cm Quynh Stewart MD [facility] Work Phone: 01-21-2017 09:53-0400 Pulse (Heart Rate) 57 /min Quynh [facility] Work Phone: 01-21-2017 09:53-0400 Respiratory Rate 14 /min Quynh Stewart MD [facility] Work Phone: 01-21-2017 09:53-0400 Weight 55.88 kg Quynh Stewart MD [facility] Work Phone: Encounters Encounter Date Encounter Type Care Provider Facility Start: 07-28-2022 End: 07-28-2022 Patient encounter procedure Heydi Ector Lu PA-C Work Phone: [facility] Procedures Date Procedure Procedure Detail Performing Clinician Start: 01-21-2017 End: 01-23-2017 *CMP Complete Metabolic Panel Quynh Stewart MD Work Phone: Start: 01-21-2017 End: 01-25-2017 Electrocardiogram Quynh Laboy Work Phone: Start: 01-21-2017 End: 01-21-2017 Follow Up Appt 2 weeks Quynh steele MD Work Phone: Start: 01-21-2017 End: 01-23-2017 HbA1c Quynh Laboy Work Phone: Start: 01-21-2017 End: 01-23-2017 Lipid panel [AGGREGATE] Quynh murrell MD Work Phone: Start: 01-21-2017 End: 01-23-2017 Thyroid stimulating hormone (TSH) Quynh Stewart MD Work Phone: Start: 01-21-2017 End: 01-23-2017 Thyroxine (T4) free Quynh Laboy Work Phone: Plan of Treatment Date Care Activity Detail Author Start: 05-13-2022 ADVANCE DIRECTIVE DISCUSSION ADVANCE DIRECTIVE DISCUSSION [facility] Start: 05-13-2022 DEPRESSION ASSESSMENT DEPRESSION ASSESSMENT [facility] Start: 01-11-2022 Influenza vaccination INFLUENZA (#1) [facility] Start: 12-01-2021 COVID-19 VACCINE (5 - Booster for Pfizer series) COVID-19 VACCINE (5 - Booster for Pfizer series) [facility] Start: 04-24-2017 End: 01-23-2017 Thyroid stimulating hormone (TSH) *TSH [facility] Work Phone: Start: 04-24-2017 End: 01-23-2017 Thyroxine (T4) free *T4 free [facility] Work Phone: Start: 02-04-2017 End: 02-04-2017 Appointment Appointment [employer] [employer] Work Phone: Start: 02-04-2017 End: 02-04-2017 Follow Up Appt 2 months Follow Up Appt 2 months [facility] Work Phone: Start: 01-21-2017 End: 01-21-2017 Appointment Appointment [facility] Work Phone: Start: 01-21-2017 End: 01-23-2017 *CMP Complete Metabolic Panel *CMP Complete Metabolic Panel [facility] Work Phone: Start: 01-21-2017 End: 01-25-2017 *EKG (Done in Hospital) *EKG (Done in Hospital) [facility] Work Phone: Start: 01-21-2017 End: 01-21-2017 Follow Up Appt 2 weeks Follow Up Appt 2 weeks [facility] Work Phone: Start: 01-21-2017 End: 01-23-2017 HbA1c *HgA1C [employer] [facility] Work Phone: Start: 01-21-2017 End: 01-23-2017 Lipid panel [AGGREGATE] *Lipid Profile [facility] [employer] [facility] Work Phone: Start: 01-21-2017 End: 01-23-2017 Thyroid stimulating hormone (TSH) *TSH [facility] Work Phone: Start: 01-21-2017 End: 01-23-2017 Thyroxine (T4) free *T4 free [facility] Work Phone: Start: 2009 BONE DENSITY BONE DENSITY [facility] Start: 2009 PNEUMOCOCCAL: 65+ (1 - PCV) PNEUMOCOCCAL: 65+ (1 - PCV) [facility] Start: 05-14-2006 Urine microalbumin profile DTAP,TDAP,TD (1 - Tdap) [facility] Start: 1994 SHINGRIX VACCINE (1 of 2) SHINGRIX VACCINE (1 of 2) [facility] Start: 1989 DIABETES SCREEN DIABETES SCREEN [facility] Start: 1962 HEPATITIS C SCREENING HEPATITIS C SCREENING [facility] Immunizations Immunization Date Immunization Notes Care Provider Xander norton 05-13-2006 tetanus and diphther ia toxoids, adsorbed, preservative free, for adult use (2 Lf of tetanus toxoid and 2 Lf of diphtheria toxoid) Heydi Lu PA-C Work Phone: [facility] Work Phone: Payers Date Payer Category Payer Medicare [employer] MEDICARE [employer] GOLD PLUS [id number] 2018-Present [id number] [place] [id number] O [id number] Social History Date Type Detail Facility Start: 09-06-2014 Tobacco smoking stat [facility] Never smoked tobacco [facility] Start: 09-06-2014 Tobacco use and exposure Smoke less tobacco non-user [facility] Start: 07-28-2022 Alcohol intake Current drinke r of alcohol (finding) [facility] Start: 07-28-2022 [facility] Start: 1945 Sex Assigned At Not on file [facility] History of Present illness Narrative 07-28-2022 Heydi Lu PA-C - 07/28/2022 12:19 PM EDT Note Date & Type Note Facility 07-28-2022 History of Presen t illness Narrative Images from the original note were not included. This note was created using [employer]. Subjective Gauri Davies is a 77 year old female. HPI Presents with a rash on her left shoulder chest and back over the past 2 days. She states sometimes she will get some pain with it off and on. No itching. Denies any new lotions or soaps. No new medications. She was working in the garden morning but did not think she had gotten into anything. No fever cough or congestion. No sore throat. No vomiting or diarrhea. She thinks she did have chickenpox as a child. Has not had the vaccine. Review of Systems Constitutional: Negative. HENT: Negative. Respiratory: Negative. Cardiovascular: Negative. Gastrointestinal: Negative. Genitourinary: Negative. Musculoskeletal: Negative. Skin: Positive for rash. Neurological: Negative. All other systems reviewed and are negative. No past medical history on file. Current Outpatient Medications Medication Sig Dispense Refill amLODIPine (NORVASC) 5 mg tablet levothyroxine (SYNTHROID) 25 mcg tablet valACYclovir (VALTREX) 1 gram Take 1 tablet by mouth three times daily for 7 days. 21 tablet 0 No current facility-administered medications for this visit. No past surgical history on file. FAMILY HISTORY Problem Relation Age of Onset None Mother None Father Social History Tobacco Use Smoking status: Never Smokeless tobacco: Never Substance Use Topics Alcohol use: Yes Alcohol/week: 2.5 standard drinks Types: 1 Glasses of Wine (5oz) per week Drug use: No Objective BP 140/68 Pulse 68 Temp 36.4 C (97.6 F) (Tympanic) Resp 18 Wt 56.8 kg (125 lb 3.2 oz) SpO2 97% BMI 23.34 kg/m Physical Exam Vitals reviewed. Constitutional: Appearance: Normal appearance. HENT: Head: Normocephalic and atraumatic. Skin: General: Skin is warm and dry. Comments: Patient has erythematous vesicular rash in patches on her left shoulder, anterior left chest and lower neck as well as the posterior left upper back. Consistent with shingles. Neurological: Mental Status: She is alert. Assessment and Plan ASSESSMENT/PLAN: 1. Herpes zoster without complication - ICD9: 053.9, ICD10: B02.9 Patient is in the window for antiviral treatment. Kidney function from May 2022 reviewed and was normal. I will place her on Valtrex 3 times daily for 7 days. Recommended follow-up with PCP if symptoms are not improving over the next 1 to 2 weeks. Patient agreeable with plan. Contagiousness discussed as well. Heydi Lu PA-C documented in this encounter [facility] Instructions 07-28-2022 Patient Instructions Note Date & Type Note Facility 07-28-2022 Instructions Heydi Lu PA-C - 07/28/2022 12:15 PM EDT Herpes Zoster Infection (Shingles) Herpes zoster infection, also called shingles, is caused by the chickenpox virus. When a person has chickenpox, he or she is never completely cured of the virus. The virus lives at the base of nerves under the skin, and the body's immune system usually keeps the infection confined there. However, sometimes the virus becomes active again, and produces blisters. Pain is usually the first sign of shingles, followed by blisters most often located over one side of the chest and back, or on one side of the face or neck. However, shingles can occur almost anywhere on the body. The blisters of shingles usually heal in about 3 weeks. Several medications can hasten healing slightly if given within the first 2 to 3 days. These medications are acyclovir (Zovirax), famcyclovir (Famvir), and valacyclovir (Valtrex). Occasionally, the pain of shingles lasts after the skin has healed. This is called postherpetic neuralgia. People over about 60 years of age are at greatest risk of this. Postherpetic neuralgia can be treated with oral medications for pain, a cream called Zosqix, and tricyclic antidepressants such as amitriptyline (Elavil). These tricyclic antidepressants are not used for their antidepressant actions, but rather for their beneficial effects on healing inflamed nerves. Postherpetic neuralgia usually disappears within six months. documented in this encounter [facility] Progress note 05-12-2021 Note Date & Type Note Facility 05-12-2021 Note HNO ID: [id number] Author: Alejandro Herman APRN.MUSIC COPYIST Service: ? Author Type: Nurse Practitioner Type: Progress Notes Filed: 05/12/2021 9:14 AM Note Text: Subjective HPI Nontoxic-appearing female presents urgent care chief complaint COVID-19 exposure. Patient states tested positive for COVID-19. Presents today for COVID-19 testing. Patient denies any symptoms currently. No OTC medication use. Denies any pain. Denies history of COVID-19. Did receive receive 3 doses of COVID-19 vaccine. Denies any fever body aches chills cough chest pain shortness of breath pleuritic pain hemoptysis or change in bowel or bladder habits. Past medical history prescription medication use allergies reviewed. .Patient presents with: Follow Up: Pt reported Covid positive, denied SOB, chest pain History reviewed. No pertinent past medical history. History reviewed. No pertinent surgical history. ALLERGIES Patient has no known allergies. MEDICATIONS amLODIPine (NORVASC) 5 mg tablet levothyroxine (SYNTHROID) 25 mcg tablet FAMILY HISTORY Problem Relation Age of Onset - None Mother - None Father Social History Tobacco Use - Smoking status: Never Smoker - Smokeless tobacco: Never Used Substance Use Topics - Alcohol use: Yes Alcohol/week: 2.5 standard drinks Types: 1 Glasses of Wine (5oz) per week - Drug use: No BP 132/84 (BP Site: Left Arm, BP Position: Sitting) Pulse 88 Temp 36.8 ?C (98.2 ?F) (Temporal Artery) Resp 14 Wt 57.1 kg (125 lb 12.8 oz) BMI 23.45 kg/m? Review of Systems Constitutional: Negative for chills, fever and malaise/fatigue. HENT: Negative for congestion, ear discharge, ear pain, sinus pain and sore throat. Eyes: Negative for blurred vision, pain, discharge and redness. Respiratory: Negative for cough, hemoptysis, sputum production, shortness of breath, wheezing and stridor. Cardiovascular: Negative for chest pain. Gastrointestinal: Negative for abdominal pain, diarrhea, nausea and vomiting. Musculoskeletal: Negative for myalgias. Skin: Negative for itching and rash. Neurological: Negative for dizziness and headaches. Objective Physical Exam Constitutional: General: She is not in acute distress. Appearance: She is not diaphoretic. HENT: Head: Normocephalic. Mouth/Throat: Mouth: Mucous membranes are moist. Pharynx: Oropharynx is clear. No oropharyngeal exudate or posterior oropharyngeal erythema. Eyes: Conjunctiva/sclera: Conjunctivae normal. Pupils: Pupils are equal, round, and reactive to light. Cardiovascular: Rate and Rhythm: Normal rate and regular rhythm. Heart sounds: Normal heart sounds. Pulmonary: Effort: Pulmonary effort is normal. No tachypnea, accessory muscle usage or respiratory distress. Breath sounds: Normal breath sounds. No stridor. Abdominal: Palpations: Abdomen is soft. Tenderness: There is no abdominal tenderness. Musculoskeletal: Cervical back: Normal range of motion and neck supple. No rigidity or tenderness. Lymphadenopathy: Cervical: No cervical adenopathy. Skin: General: Skin is warm and dry. Neurological: Mental Status: She is alert and oriented to person, place, and time. ASSESSMENT/PLAN: 1. Exposure to COVID-19 virus - ICD9: V01.79, ICD10: Z20.822 - COVID WITH FLUA+B, ROUTINE COVID-19 test ordered results pending. Red flags for prompt reevaluation discussed. Will follow up with PCP if symptoms develop. Alejandro Herman APRN.[facility] Evaluation note Note Date & Type Note Facility documented in this encounter [facility] Summary Purpose Family History No Family History Records Found Advance Directives No Advanced Directives Records Found Additional Source Comments INFORMATION SOURCE (unrecogn ized section and content) Source Comments (unrecognize d section and content) In the event this informatio n is protected by the Federal Confidentiality of Alcohol and Drug Abuse Patient Records regulations: The Federal rules restrict any use of the information to criminally investigate or prosecute any alcohol or drug abuse patient.[facility] Reason for Visit (unrecogniz ed section and content) FOR RECORDS PERTAINING TO PATIENTS WHO ARE OR HAVE BEEN ENROLLED IN A CHEMICAL DEPENDENCY/SUBSTANCEABUSE PROGRAM, SOME INFORMATION MAY BE OMITTED. This clinical summary was aggregated from multiple sources. Caution should be exercised in using it in the provision of clinical care. This summary normalizes information from multiple sources, and as a consequence, information in this document may materially change the coding, format and clinical context of patient data. In addition, data may be omitted in some cases. CLINICAL DECISIONS SHOULD BE BASED ON THE PRIMARY CLINICAL RECORDS. [employer] [facility]. provides no warranty or guarantee of the accuracy or completeness of information in this document.
[2023-06-05 08:01] LABS: Anion Gap 1 (5-15); BUN 11 mg/dL (7-18); BUN/Creat Ratio 15.3 RATIO (10-20); Calcium,Total 9.2 mg/dL (8.5-10.1); Chloride 106 mmol/L (98-107); Cholesterol 210 mg/dL (200); Creatinine, Serum 0.72 mg/dL (0.55-1.02); EST Glomerular Filtration Rate 84 mL/min (>60); Est Glom Filt Rate - Afr Amer 101 mL/min (>60); Free T3 1.7 pg/mL (2.18-3.98); Glucose 94 mg/dL (74-106); High Density Lipoprotein 130 mg/dL; Potassium 3.7 mmol/L (3.5-5.1); Sodium Level 136 mmol/L (136-145); T4 Free Direct 0.86 ng/dL (0.76-1.46); Thyroid Stim Hormone (TSH) 3.96 uIU/mL (0.358-3.74); Triglycerides 52 mg/dL; Very Low Density Lipoprotein 10 mg/dL (5-40)
== END | disposition home or self-care (01) ==
LOC: LAB 06:57
PROVIDERS: PCP Family Medicine; Referring Provider Family Medicine; Visit Provider Family Medicine
DX: Z00.00 Encounter for general adult medical examination without abnormal findings (principal); E03.9 Hypothyroidism, unspecified
CPT/HCPCS: 36415; 80048; 80061; 84439; 84443; 84481

== ENCOUNTER → 2023-08-27 | Outpatient (CLI) | payer MEDICARE, SELFPAY ==
[2023-08-27 08:13] LABS: Free T3 2.4 pg/mL (2.18-3.98); Thyroid Stim Hormone (TSH) 0.14 uIU/mL (0.358-3.74)
== END | disposition home or self-care (01) ==
LOC: LAB 06:57
PROVIDERS: PCP Family Medicine; Referring Provider Family Medicine; Visit Provider Family Medicine
DX: E03.9 Hypothyroidism, unspecified (principal)
CPT/HCPCS: 36415; 84439; 84443; 84481

== ENCOUNTER → 2023-12-26 | Outpatient (CLI) | payer MEDICARE, SELFPAY ==
[2023-12-26 15:51] LABS: T4 Free Direct 1.23 ng/dL (0.76-1.46); Thyroid Stim Hormone (TSH) 0.102 uIU/mL (0.358-3.740)
== END | disposition home or self-care (01) ==
LOC: MFPLAB 11:27
PROVIDERS: Family Medicine; PCP Family Medicine; Referring Provider Family Medicine; Visit Provider Family Medicine
DX: E03.9 Hypothyroidism, unspecified (principal)
CPT/HCPCS: 36415; 84439; 84443

== ENCOUNTER → 2024-02-10 | Outpatient (CLI) | payer MEDICARE, SELFPAY ==
[2024-02-10 13:38] LABS: T4 Free Direct 0.94 ng/dL (0.76-1.46)
== END | disposition home or self-care (01) ==
LOC: MFPLAB 10:19
PROVIDERS: PCP Family Medicine; Visit Provider Family Medicine
DX: E03.9 Hypothyroidism, unspecified (principal)
CPT/HCPCS: 36415; 84439; 84443

== ENCOUNTER → 2024-08-19 | Outpatient (CLI) | payer MEDICARE, SELFPAY ==
[2024-08-19 07:35] LABS: ALB/GLOB Ratio 1.5 RATIO (0.9-2.4); AST(SGOT) 21 U/L (<=31); Alanine Aminotransfer ALT/SGPT 16 U/L (<=34); Albumin, Serum 4.3 g/dL (3.4-4.8); Alkaline Phosphatase 89 U/L (35-104); Anion Gap 9 (5-15); BUN 10 mg/dL (4-19); BUN/Creat Ratio 11.9 RATIO (10-20); Calcium,Total 9.5 mg/dL (7.6-11.0); Carbon Dioxide 27.5 mmol/L (21.0-32.0); Chloride 98 mmol/L (98-108); Cholesterol 212 mg/dL (<=200); EST Glomerular Filtration Rate 74 (>60); Free T3 2.2 pg/mL (2.18-3.98); Globulin 2.9 g/dL (2.2-4.2); Glucose 91 mg/dL (70-99); High Density Lipoprotein 126 mg/dL; Low Density Lipoprotein Calc. 74 mg/dL; Potassium 4.2 mmol/L (3.3-5.1); Protein, Total 7.2 g/dL (5.9-8.4); Sodium Level 135 mmol/L (133-145); Total Bilirubin 0.48 mg/dL (0.00-1.30); Triglycerides 58 mg/dL; Very Low Density Lipoprotein 12 mg/dL (5-40); cholesterol:hdl ratio screen 1.68
== END | disposition home or self-care (01) ==
LOC: LAB 06:41
PROVIDERS: PCP Family Medicine; Referring Provider Family Medicine; Visit Provider Family Medicine
DX: I10 Essential (primary) hypertension (principal); E03.9 Hypothyroidism, unspecified
CPT/HCPCS: 36415; 80053; 80061; 84439; 84443; 84481

== ENCOUNTER → 2024-12-17 | Outpatient (CLI) | payer MEDICARE, SELFPAY ==
--- NOTE | 2024-12-17 08:23 | BD_ITS ---
PROCEDURE: DEXA BONE DENSITY STUDY N/A REASON FOR EXAM: F, age 79 y/o . Postmenopausal. TECHNIQUE: DEXA BONE DENSITY STUDY COMPARISON: Prior study dated December 09, 2018. FINDINGS: BMD and T-SCORES Lumbar spine: 0.730 g/cm2, T-score -2.6 Levels: L1 through L4 Change from prior: Loss of 3.9%. Left femoral neck: 0.697 g/cm2, T-score -1.4 Femoral neck comparison data not recommended for monitoring change. Left total hip: 0.798 g/cm2, T-score -1.2 Change from prior: Loss of 4.3%. Right femoral neck: 0.702 g/cm2, T-score -1.3 Femoral neck comparison data not recommended for monitoring change. Right total hip: 0.775 g/cm2, T-score -1.4 Change from prior: Loss of 5.3%. The World Health Organization has defined the following categories based on bone density: Normal bone density: T-score equal to or greater than -1.0 Osteopenia: T-score between -1.0 and -2.5 Osteoporosis: T-score equal to or less than -2.5 The patient does meet the pharmacological treatment recommendations for prevention of osteoporosis. BD/Dexa Bone Density Study IMPRESSION: OSTEOPOROSIS. Recommend follow-up as clinically warranted. Reading Location: [id number]
== END | disposition home or self-care (01) ==
LOC: OPBD 08:22
PROVIDERS: PCP Family Medicine; Referring Provider Family Medicine; Visit Provider Family Medicine
DX: Z78.0 Asymptomatic menopausal state (principal)
CPT/HCPCS: 77080

== ENCOUNTER → 2025-03-04 | Outpatient (CLI) | payer MEDICARE, SELFPAY ==
[2025-03-04 08:40] LABS: AST(SGOT) 21 U/L (<=31); Alanine Aminotransfer ALT/SGPT 16 U/L (<=34); Albumin, Serum 4.5 g/dL (3.4-4.8); Alkaline Phosphatase 80 U/L (35-104); Anion Gap 8 (5-15); BUN 11 mg/dL (4-19); BUN/Creat Ratio 13.9 RATIO (10-20); Calcium,Total 9.6 mg/dL (7.6-11.0); Carbon Dioxide 27.5 mmol/L (21.0-32.0); Chloride 99 mmol/L (98-108); Cholesterol 211 mg/dL (<=200); Free T3 2.2 pg/mL (2.18-3.98); Globulin 3.2 g/dL (2.2-4.2); Glucose 91 mg/dL (70-99); Low Density Lipoprotein Calc. 79 mg/dL; Potassium 4.2 mmol/L (3.3-5.1); Triglycerides 46 mg/dL; Very Low Density Lipoprotein 9 mg/dL (5-40); cholesterol:hdl ratio screen 1.72
== END | disposition home or self-care (01) ==
PROVIDERS: PCP Family Medicine; Referring Provider Family Medicine; Visit Provider Family Medicine
DX: E03.9 Hypothyroidism, unspecified (principal); I10 Essential (primary) hypertension
CPT/HCPCS: 36415; 80053; 80061; 84439; 84443; 84481

== ENCOUNTER → 2025-04-27 | Outpatient (CLI) | payer MEDICARE, SELFPAY ==
--- NOTE | 2025-04-27 12:42 | ECHOD_ITS ---
Reason For Study Reason For Study: HTN Procedure This was a 2D Doppler, Color Flow transthoracic echocardiogram. Exam performed in department. Left Ventricle Normal LV size. Left ventricular systolic function is normal. The left ventricular ejection fraction is 65 %. No regional wall motion abnormalities noted. Right Ventricle Normal RV size. Normal systolic function. Atria Normal left atrium. Normal right atrium. Mitral Valve Normal mitral valve. Mild (1+) eccentric mitral valve insufficiency. Tricuspid Valve Normal tricuspid valve. Mild (1+) tricuspid valve insufficiency. Pulmonary artery systolic pressure is 39 mmHg. Aortic Valve Trisinus/trileaflet aortic valve. Pulmonic Valve Normal pulmonic valve. Great Vessels Normal aortic root. The pulmonary artery is normal size. Inferior vena cava collapse with respiration. Pericardium/Pleural No pericardial effusion. MMode/2D Measurements & Calculations LVIDd: 4.8 cm IVSd: 0.81 cm Ao root diam: 3.7 cm LVIDs: 2.9 cm LVPWd: 0.91 cm RVDd: 3.7 cm FS: 38.7 % LAV(MOD-bp): 58.3 ml LVAd ap4: 22.8 cm2 SV(MOD-sp4): 41.3 ml LAV(MOD-bp) Indexed: 38.0 ml/m2 LVLd ap4: 6.9 cm SI(MOD-sp4): 26.9 ml/m2 LAV(MOD-sp2): 59.0 ml EDV(MOD-sp4): 62.8 ml LAV(MOD-sp4): 53.3 ml EDV(sp4-el): 64.2 ml LVAs ap4: 11.4 cm2 LVLs ap4: 5.3 cm ESV(MOD-sp4): 21.4 ml ESV(sp4-el): 20.6 ml EF(MOD-sp4): 65.8 % EF(sp4-el): 68.0 % SV(sp4-el): 43.6 ml LA A4 area: 19.4 cm2 LA dimension(2D): 3.8 cm RA A4 area: 18.0 cm2 TAPSE: 3.2 cm Time Measurements MV dec time: 0.27 sec Doppler Measurements & Calculations MV E max jose elias: 84.6 cm/sec Lat Peak E' Jose Elias: 13.3 cm/sec Med Peak E' Jose Elias: 11.8 cm/sec MV A max jose elias: 42.2 cm/sec E/E' lat: 6.4 E/E' med: 7.2 MV E/A: 2.0 Ao V2 max: 161.1 cm/sec LV V1 max: 139.3 cm/sec MV dec slope: 307.9 cm/sec2 Ao max P.4 mmHg LV V1 max P.8 mmHg Ao V2 mean: 103.4 cm/sec LV V1 mean P.8 mmHg Ao mean P.0 mmHg LV V1 mean: 90.2 cm/sec Ao V2 VTI: 36.6 cm LV V1 VTI: 30.6 cm AV (velocity ratio): 0.84 PA V2 max: 115.7 cm/sec TR max jose elias: 298.7 cm/sec TR max P.7 mmHg ECHO/Echo Complete Interpretation Summary Normal LV size. Left ventricular systolic function is normal. The left ventricular ejection fraction is 65 %. Mild (1+) eccentric mitral valve insufficiency. Ordering Physician: Westley Campa Referring Physician: Piero Lewis Performed By: Milena Dumont, JAYDE, RVT
== END | disposition home or self-care (01) ==
PROVIDERS: PCP Family Medicine; Referring Provider Internal Medicine Cardiovascular Disease; Visit Provider Internal Medicine Cardiovascular Disease
DX: I08.1 Rheumatic disorders of both mitral and tricuspid valves (principal); I10 Essential (primary) hypertension
CPT/HCPCS: 93306